=== PATIENT | female | born 2005 | race Caucasian/White ===

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

== ENCOUNTER 2024-05-23 09:04 | Emergency (ER) | payer OTHER, SELFPAY ==
[2024-05-23 09:16] VITALS: BP 133/80; PULSE 66; RESP 16; TEMP 36.6; O2SAT 100
[2024-05-23 10:00] VITALS: BP 146/78; PULSE 66; RESP 16; TEMP 36.7; O2SAT 99
--- NOTE | 2024-05-23 10:05 | ED.GENADULT ---
HPI - General Adult General Chief complaint: Nausea/Vomiting/Diarrhea Stated complaint: n/v Time Seen by Provider: 05/23/24 10:04 Source: patient Mode of arrival: ambulatory Limitations: no limitations History of Present Illness HPI narrative: 18 years old white female came to the ED complaining of nausea and vomiting for the last 48 hours. She denies any fever or chills or diarrhea or abdominal pain. Patient report some box ago known around where she laid, patient uses marijuana on a daily. She healthy otherwise. Related Data Home Medications ?Medication ?Instructions ?Recorded ?Confirmed ?Last Taken ?Type sertraline 50 mg tablet (Zoloft) 75 mg PO DAILY 02/21/22 02/21/22 Unknown History Allergies Allergy/AdvReac Type Severity Reaction Status Date / Time No Known Allergies Allergy Verified 05/23/24 09:16 Review of Systems Review of Systems: All systems reviewed & are unremarkable except as noted in HPI and below PMFSH Past Medical History Medical History Anxiety Social History Social History Smoking status: Never smoker Alcohol intake: never Substance use: never Exam Narrative: General appearance: Well-developed, well-nourished Skin: Normal color Head: Normocephalic, nontraumatic Eyes: Clear conjunctiva ENT: Oropharynx normal, ears normal, nose normal Neck: Supple, nontender Chest and respiratory: Airway patent, no respiratory distress, no accessory muscle use Heart: Regular rate/rhythm Abdomen: Soft, nontender, no organomegaly, quiet bowel sounds Vascular: Normal peripheral pulses, normal capillary refill. Musculoskeletal: Normal range of motion, nontender back Neurologic: Alert and oriented ?3, FACULTY DEAN is normal as tested, no gross motor deficit Course Vital Signs Vital signs: Vital Signs Temperature 36.6 C 05/23/24 09:16 Pulse Rate 66 05/23/24 09:16 Respiratory Rate 16 05/23/24 09:16 Blood Pressure 133/80 05/23/24 09:16 Pulse Oximetry 100 05/23/24 09:16 Oxygen Delivery Room Air 05/23/24 09:16 Temperature 36.7 C 05/23/24 10:00 Pulse Rate 78 05/23/24 11:00 Respiratory Rate 16 05/23/24 11:00 Blood Pressure 133/88 05/23/24 11:00 Pulse Oximetry 100 05/23/24 11:00 Oxygen Delivery Room Air 05/23/24 09:16 Medical Decision Making [facility] Narrative Medical decision making narrative: Patient presents with nausea and vomiting Vital signs are stable Physical examination is unremarkable Differential diagnosis include viral infection, marijuana induced vomiting, dehydration, electrolyte imbalance, urinary tract infection, anxiety like symptoms Blood workup includes CBC, CMP, lipase showed WBC of 11.8, lying gap 23, carbon dioxide 16, chloride 97 Urinalysis showed 4+ ketones Patient tested negative for COVID, flu and RSV CT abdomen and pelvis with IV contrast showed possible gallbladder issues, Ultrasound of the gallbladder showed no acute abnormalities Diagnosis of vomiting, marijuana use Discharged on Zofran. Differential Diagnosis Differential Diagnosis: As above Vital Signs Vital Signs: Vital Signs Temperature 36.6 C 05/23/24 09:16 Pulse Rate 66 05/23/24 09:16 Respiratory Rate 16 05/23/24 09:16 Blood Pressure 133/80 05/23/24 09:16 Pulse Oximetry 100 05/23/24 09:16 Oxygen Delivery Room Air 05/23/24 09:16 Temperature 36.7 C 05/23/24 10:00 Pulse Rate 78 05/23/24 11:00 Respiratory Rate 16 05/23/24 11:00 Blood Pressure 133/88 05/23/24 11:00 Pulse Oximetry 100 05/23/24 11:00 Oxygen Delivery Room Air 05/23/24 09:16 Lab Data 05/23/24 10:17 05/23/24 10:17 Labs: Lab Results 05/23/24 05/23/24 05/23/24 Range/Units 09:45 10:17 10:31 WBC 11.8 H (4.5-10.0) K/mm3 RBC 4.73 (4.2-5.4) M/mm3 Hgb 14.8 (12.0-15.0) g/dL Hct 42.2 (37.0-47.0) % MCV 89.2 (80-100) fl MCH 31.3 (26-34) pg MCHC 35.1 (32-36) g/dl RDW 13.2 (11.5-14.5) % Plt Count 279 (150-375) k/mm3 MPV 11.0 H (7.4-10.4) fl Immature Gran % (Auto) 0.7 H (0-0.5) % Neut % (Auto) 84.3 H (45.5-73.1) % Lymph % (Auto) 8.9 L (18.3-44.2) % Delta % (Auto) 5.8 (2.6-8.5) % Eos % (Auto) 0.0 (0-4.4) % Baso % (Auto) 0.3 (0.2-1.2) % Lymph # (Auto) 1.05 (0.9-3.2) K/mm3 Delta # (Auto) 0.7 H (0.1-0.6) K/mm3 Eos # (Auto) 0.0 (0-0.3) K/mm3 Baso # (Auto) 0.0 (0.0-0.1) K/mm3 Abs Immat Gran (auto) 0.08 H (0.00-0.031) K/mm3 Absolute Neuts (auto) 9.9 H (1.3-6.7) K/mm3 Absolute Nucleated RBC 0.000 (0.0-0.012) K/mm3 Nucleated RBC % 0.0 (0.0-0.2) % Sodium 136 L (137-145) mmol/L Potassium 3.6 (3.4-5.0) mmol/L Chloride 97 L (98-107) mmol/L Carbon Dioxide 16 L (22-30) mmol/L Anion Gap 23 H (4-12) mmol/L BUN 14 (7-17) mg/dL Creatinine 0.84 (0.7-1.0) mg/dL Estim Creat Clear Calc 70 ml/min Estimated GFR > 60 (59 - ) Glucose 106 (65-110) mg/dL Calcium 10.2 (8.4-10.2) mg/dL Total Bilirubin 0.9 (0.2-1.3) mg/dL AST 39 H (14-36) U/L ALT 41 H (6-35) U/L Alkaline Phosphatase 61 (38-126) U/L Total Protein 9.0 H (6.3-8.2) g/dL Albumin 5.2 H (3.5-5.1) g/dL Lipase 42 (23-300) U/L Urine Color Yellow (Yellow) Urine Appearance Clear (Clear) Urine pH 5.5 (5.0-9.0) Ur Specific Reading 1.026 (1.001-1.035) Urine Protein 1+ H (Negative) mg/dL Urine Glucose (UA) Negative (Negative) mg/dL Urine Ketones 4+ H (Negative) mg/dL Ur Blood (Man) 1+ H (Negative) Urine Nitrate Negative (Negative) Urine Bilirubin Negative (Negative) Urine Urobilinogen 0.2 (<2.0) mg/dL Leukocyte Esterase Rfl Negative (Negative) BRYAN/UL Urine RBC 0-2 (0-2) /hpf Urine WBC 0-5 (0-3) /hpf Ur Squamous Epith Cells None seen (Few) /hpf Urine Bacteria None seen /hpf Urine Casts 0-2 POC Urine HCG, Qual Negative (Negative) Influenza A (RT-PCR) Negative (Negative) Influenza B (RT-PCR) Negative (Negative) RSV (RT-PCR) Negative (Negative) SARS-CoV-2 RNA (RT-PCR) Negative (Negative) Imaging Data Radiologist's impression: Impressions Abdomen/Pelvis CT 05/23/24 12:17 Impression: Periportal edema and mild gallbladder wall thickening, nonspecific findings. Consider gallbladder ultrasound for further evaluation as indicated. Small right ovarian cyst and probable trace free fluid in the pelvis. Upper Quadrant Ultrasound 05/23/24 13:17 Impression: No significant abnormality seen. Discharge Plan Discharge Clinical Impression: Vomiting Patient Disposition: Home, Self-Care Condition: Stable Instructions: Acute Nausea and Vomiting (DC) Additional Instructions: Return if symptoms are worsening , call your family physician for appointment, take Tylenol as as needed for aches and pain, continue home medications. Stop using marijuana Patient Language: Welsh Prescriptions: New ondansetron 4 mg tablet,disintegrating 4 mg PO Q4H 0 Days Qty: 10 0RF Rx Instructions: 1st dose 1-2 hr before radiation No Action sertraline [Zoloft] 50 mg Tablet 75 mg PO DAILY Follow-up/Referrals: [facility] [place], [place], [Primary Care Provider] - Stand Alone Forms: Work/School Release IP
[2024-05-23 10:30] VITALS: BP 140/90; PULSE 87; RESP 16; O2SAT 100
[2024-05-23 10:36] LABS: Basophils Percent Auto 0.3 % (0.2-1.2); Hematocrit 42.2 % (37.0-47.0); Hemoglobin 14.8 g/dL (12.0-15.0); Immature Granulocyte Absolute 0.08 K/mm3 (0.00-0.031); Immature Granulocyte Percent A 0.7 % (0-0.5); Lymphocytes Absolute Auto 1.05 K/mm3 (0.9-3.2); Lymphocytes Percent Auto 8.9 % (18.3-44.2); Mean Corpuscular HGB Conc 35.1 g/dl (32-36); Mean Corpuscular Hemoglobin 31.3 pg (26-34); Mean Corpuscular Volume 89.2 fl (80-100); Monocytes Absolute Auto 0.7 K/mm3 (0.1-0.6); Monocytes Percent Auto 5.8 % (2.6-8.5); Neutrophils Absolute Auto 9.9 K/mm3 (1.3-6.7); Neutrophils Percent Auto 84.3 % (45.5-73.1); Platelet Count Result 279 k/mm3 (150-375); Red Blood Count 4.73 M/mm3 (4.2-5.4); Red Cell Distribution Width 13.2 % (11.5-14.5); White Blood Count 11.8 K/mm3 (4.5-10.0)
[2024-05-23 10:44] LABS: Add Urine Microscopic? YES; Appearance Urine Clear (Clear); Bacteria Urine None Seen /hpf; Bilirubin Urine Negative (Negative); Blood Urine 1+ (Negative); Color Urine Yellow (Yellow); Glucose Urine UA Negative (Negative); Ketones Urine 4+ mg/dL (Negative); Leukocyte Esterase Ur Negative LEU/UL (Negative); Nitrate Urine Negative (Negative); Non Pathogenic Casts 0-2; Protein Urine 1+ mg/dL (Negative); RBC Urine 0-2 /hpf (0-2); Specific Grav Ur 1.026 (1.001-1.035); Squamous Epithelial Cell Urine None Seen /hpf (Few); Urobilinogen Urine 0.2 mg/dL (<2.0); WBC Urine 0-5 /hpf (0-3); pH Urine 5.5 (5.0-9.0)
[2024-05-23] MEDS: SODIUM CHLORIDE 0.9% IV 2,000 ML 999 ML IV CONT (10:44)
[2024-05-23] MEDS: ONDANSETRON INJ 4 MG/2 ML VIAL 8 MG IV PUSH (10:45)
[2024-05-23 10:47] LABS: Alanine Aminotransferase 41 U/L (6-35); Albumin Level 5.2 g/dL (3.5-5.1); Alkaline Phosphatase 61 U/L (38-126); Anion Gap 23 mmol/L (4-12); Aspartate Amino Transferase 39 U/L (14-36); Bilirubin,Total 0.9 mg/dL (0.2-1.3); Blood Urea Nitrogen 14 mg/dL (7-17); Calcium 10.2 mg/dL (8.4-10.2); Carbon Dioxide 16 mmol/L (22-30); Chloride 97 mmol/L (98-107); Estimated CRCL calculation 70 ml/min; Estimated Glomerular Filt Rate > 60; Glucose 106 mg/dL (65-110); Lipase 42 U/L (23-300); Potassium 3.6 mmol/L (3.4-5.0); Sodium 136 mmol/L (137-145)
[2024-05-23 11:00] VITALS: BP 133/88; PULSE 78; RESP 16; O2SAT 100
[2024-05-23 11:12] LABS: Influenza A QL RT-PCR Negative (Negative); Influenza B QL RT-PCR Negative (Negative); RSV RNA, RT-PCR Negative (Negative); SARS-CoV-2 RNA PCR Negative (Negative)
[2024-05-23 11:43] LABS: BEDSIDEPREGUCG Negative (Negative)
--- NOTE | 2024-05-23 11:46 | PC.NURSE ---
Pt resting, pt has not experienced any vomiting during ER visit, nausea improved
[2024-05-23 14:08] VITALS: BP 111/52; PULSE 71; RESP 16; O2SAT 100
== END 2024-05-23 14:10 | disposition home or self-care (01) ==
PROVIDERS: Emergency Provider Emergency Medicine
DX: R11.2 Nausea with vomiting, unspecified (principal); Z20.822 Contact with and (suspected) exposure to COVID-19; F41.9 Anxiety disorder, unspecified; Z79.899 Other long term (current) drug therapy; N83.201 Unspecified ovarian cyst, right side
CPT/HCPCS: 36415; 74177; 76705; 80053; 81001; 81025; 83690; 85025; 87637; 96361; 96374; 99284; J2405; J7030; Q9967

== ENCOUNTER 2024-05-26 04:44 | Emergency (ER) | payer OTHER, SELFPAY ==
--- OUTSIDE RECORDS SUMMARY | 2024-05-26 04:46 | XMS_ITS | Clinical Summary ---
Author Organization [facility] Address [address] [place] [address] Care Team Providers Care Eyeglass Inspector Name Role Phone Chris Swartz MD Primary Care Provider [phone] Allergies No known active allergies Medications sertraline 50 MG tablet Take 50 mg by mouth daily. 1 Active amoxicillin 875 MG tablet Take 875 mg by mouth 2 (two) times daily. For 10 days beginning on 12/20/20 1 Active predniSONE 10 mg tablet Take 10 mg by mouth daily. Active ondansetron (ZOFRAN-ODT) 4 MG disintegrating tablet Take 1 tablet (4 mg total) by mouth every 8 (eight) hours as needed for Nausea. 20 tablet 5 Active Active Problems Problem Noted Date Diagnosed Date Hand sprain, right, initial encounter 05/06/2018 Encounters Date Type Department Care Team Description 05/24/2024 7:18 AM [facility] [employer] - 05/24/2024 11:06 AM [facility] Emergency [facility] [place] [address] Armida Marie MD Vomiting; Anxiety Discharge Disposition: Home or Self Care (Routine Discharge) 05/24/2024 Travel from Last 3 Months Social History Tobacco Use Types Packs/Day Years Used Date Smoking Tobacco: Never Smokeless Tobacco: Never Alcohol Use Standard Drinks/Week Comments Not Currently 0 (1 standard drink = 0.6 oz pur e alcohol) Comments No Sex and Gender Information Value Date Recorded Sex Assigned at Female 05/24/2024 7:19 AM [employer]TE [employer] Legal Sex Female 9:31 AM [employer]TE TE[employer] Gender Identity Not on file Sexual Orientation Not on file Last Filed Vital Signs Vital Sign Reading Time Taken Comments Blood Pressure 144/92 05/24/2024 7:08 AM [employer]ARETTE TE[employer] Pulse 54 05/24/2024 7:08 AM [employer]TE [employer] Temperature 37 C (98.6 F) 05/24/2024 7:08 AM [employer]ARETTE TESTER Respiratory Rate 17 05/24/2024 7:08 AM C[employer]ARETTE TESTER Oxygen Saturation 98% 05/24/2024 7:08 AM CIGARETTE TESTER Inhaled Oxygen Concentration - - Weight 53.3 kg (117 lb 8.1 oz) 05/24/2024 7:08 A M [employer] Height 156 cm (5' 1.42 ) 05/24/2024 7:08 AM C[employer]ARETTE TE[employer] Body Mass Index 21.9 05/24/2024 7:08 AM CIGARETTE TE[employer] Plan of Treatment Health Maintenance Due Date Last Done Comments Annual Physical 10/07/2006 HPV Vaccines (1 - 3-dose series) 10/07/2018 Meningococcal B Vaccine (1 o f 2 - Standard) 2019 Hepatitis C 10/07/2021 DTaP, Tdap and Td Vaccines ( 1 - Tdap) 10/07/2022 Hepatitis B Vaccines (1 of 3 - 19+ 3-dose series) 10/07/2022 COVID-19 Vaccine (3 - 2023-2 5 season) 2023 09/08/2020, 08/18/2020 Influenza Adult (#1) 2023 Meningococcal Vaccine Aged Out No sal conor eligible based on patient's age to complete this topic Pneumococcal Vaccine: Pediatrics (0 to 5 Years) and At-Risk Patients (6 to 64 Years) Aged Out No longer eligible b ased on patient's age to complete this topic RSV Immunizations Under 20 Months Aged Out No longer eligible b ased on patient's age to complete this topic Procedures Procedure Name Priority Date/Time Associated Diagnosis Comments TEST URINE STAT 05/24/2024 9:07 AM [employer]TE [employer] HC URINALYSIS AUTO W/O MICRO STAT 05/24/2024 9:07 AM [employer]TE [employer] LIPASE STAT 05/24/2024 7:45 AM [employer]TE TE[employer] COMPREHENSIVE METABOLIC PANEL STAT 05/24/2024 7:45 AM [employer]AR[employer]TE TE[employer] CBC W/DIFF AUTOMATED STAT 05/24/2024 7:45 AM CIGARETTE TESTER from Last 3 Months Results * (ABNORMAL) URINALYSIS (05/24/2024 9:07 AM CIGARETTE TESTER) SPECIMEN TYPE URINE CLEAN CATCH 05/24/2024 9:32 AM CIGARETTE TESTER [facility] COLOR (U) LIGHT YELLOW 05/24/2024 9:48 AM C[employer]ARETTE TESTER [facility] TRANSPARENCY CLEAR 05/24/2024 9:48 AM [facility] SPECIFIC GRAVITY (U) 1.028 1.001 - 1.030 05/24/2024 9:48 AM [facility] U PH 5.5 5.0 - 9.0 05/24/2024 9:48 AM [facility] LEUKOCYTES (U) NEGATIVE NEGATIVE 05/24/2024 9:48 AM [employer]TE [employer] [facility] NITRITES NEGATIVE NEGATIVE 05/24/2024 9:48 AM [facility] PROTEIN RANDOM (U) 20 <30 MG/DL 05/24/2024 9:48 AM [facility] GLUCOSE (U) NORMAL NORMAL MG/DL 05/24/2024 9:48 AM [facility] KETONES MG/DL (U) 150(A) NEGATIVE MG/DL 05/24/2024 9:48 AM [facility] UROBILINOGEN NORMAL NORMAL MG/DL 05/24/2024 9:48 AM [facility] BILIRUBIN (U) NEGATIVE NEGATIVE MG/DL 05/24/2024 9:48 AM [facility] BLOOD (U) TRACE(A) NEGATIVE 05/24/2024 9:48 AM [employer]TE [employer] [facility] MUCUS FEW /LPF 05/24/2024 9:48 AM [employer] [facility] WBC/HPF 2 <6 /HPF 05/24/2024 9:48 AM [employer] [facility] RBC/HPF 3 <6 /HPF 05/24/2024 9:48 AM [employer]TE [employer] [facility] SQUAMOUS EPITHELIALS RARE /HPF 05/24/2024 9:48 AM [employer]TE TESTER [facility] URINE SPECIMEN OBTAINED BY CLEAN CATCH PROCEDURE / Unknown 05/24/2024 9:07 AM CIGARETTE TESTER Armida Marie MD URINE ORDERABLES Final Result Performing Organization Address [facility]/ZIP Co de Phone Number [facility] [address] [place] [address], [place] [phone] * TEST URINE (05/24/2024 9:07 AM CIGARETTE TESTER) URINE HCG TEST NEGATIVE 05/24/2024 9:58 AM CIGARETTE TESTER [facility] Comment: VERY DILUTE URINE SPECIMENS MAY NOT CONTAIN SITE SURVEYOR LEVELS OF HCG. IF IS STILL SUSPECTED, A SERUM HCG TEST IS RECOMMENDED. URINE SPECIMEN FROM URETHRA / Unknown 05/24/2024 9:07 AM CIGARETTE TESTER Armida Marie MD URINE ORDERABLES Final Result [facility] [address] [place] [address], [place] [phone] * (ABNORMAL) COMPREHENSIVE METABOLIC PANEL (05/24/2024 7:45 AM CIGARETTE TESTER) GLUCOSE 97 70 - 99 MG/DL 05/24/2024 8:33 AM CIGARETTE TESTER [facility] BUN 11 7 - 18 MG/DL 05/24/2024 8:33 AM [facility] CREATININE S/P/B 0.65 0.55 - 1.02 MG/DL 05/24/2024 8:33 AM [facility] SODIUM S/P/B 136 136 - 145 MMOL/L 05/24/2024 8:33 AM [facility] POTASSIUM S/P/B 3.3(L) 3.5 - 5.1 MMOL/L 05/24/2024 8:33 AM [facility] CHLORIDE S/P/B 104 97 - 115 MMOL/L 05/24/2024 8:33 AM [facility] CO2 19.0(L) 21 - 32 MMOL/L 05/24/2024 8:33 AM [facility] CALCIUM S/P/B 9.5 8.5 - 10.1 MG/DL 05/24/2024 8:33 AM [facility] BILIRUBIN TOTAL S/P/B 1.2 0.2 - 1.2 MG/DL 05/24/2024 8:33 AM [facility] Comment: THIS ASSAY IS NOT RECOMMENDED FOR PATIENTS UNDERGOING TREATMENT WITH ELTROMBOPAG DUE TO THE POTENTIAL FOR FALSELY ELEVATED RESULTS. TOTAL PROTEIN S/P/B 7.3 6.4 - 8.2 G/DL 05/24/2024 8:33 AM [facility] ALBUMIN S/P/B 4.2 3.4 - 5.0 G/DL 05/24/2024 8:33 AM [facility] AST 26 15 - 37 U/L 05/24/2024 8:33 AM [facility] ALT 37 14 - 55 U/L 05/24/2024 8:33 AM [facility] ALKALINE PHOSPHATASE S/P/B 47(L) 50 - 136 U/L 05/24/2024 8:33 AM CIGARETTE TESTER [facility] ANION GAP 13.0(H) 2 - 10 MMOL/L 05/24/2024 8:33 AM [facility] BUN CREATININE RATIO 17.0 6 - 26 05/24/2024 8:33 AM [facility] A/G RATIO 1.4 1.0 - 2.0 RATIO 05/24/2024 8:33 AM [facility] GFR ESTIMATE >90 >90 ML/MIN/1.7 3 M2 05/24/2024 8:33 AM [facility] Comment: NOTE: eGFR is not calculated for patients <18 years of age or gender unknown. This is an estimated GFR calculation using the new CKD EPI creatinine equation without race and so does not require a correction factor for race. This estimated GFR should not be used for calculating drug doses. 05/24/2024 7:45 AM CIGARETTE TESTER Armida Marie MD LABORATORY Final Result [facility] [address] [place] [address], * (ABNORMAL) CBC W/DIFF AUTOMATED (05/24/2024 7:45 AM CIGARETTE TESTER) WBC 7.50 4.5 - 13.0 x10'3/uL 05/24/2024 8:11 AM [facility] RBC 4.41 4.20 - 5.40 x10'6/uL 05/24/2024 8:11 AM [facility] HGB 13.5 12.0 - 16.0 G/DL 05/24/2024 8:11 AM [facility] HCT 39.7 38.0 - 48.0 % 05/24/2024 8:11 AM [facility] MCV 90.0 81.0 - 99.0 FL 05/24/2024 8:11 AM [facility] MCH 30.6 27.0 - 31.0 PG 05/24/2024 8:11 AM [facility] MCHC 34.0 32.0 - 36.0 G/DL 05/24/2024 8:11 AM [facility] RDW 13.2 11.5 - 14.5 % 05/24/2024 8:11 AM [facility] PLT 253 130 - 400 x10'3/uL 05/24/2024 8:11 AM [facility] MPV 10.9 9.3 - 12.2 FL 05/24/2024 8:11 AM [facility] DIFFERENTIAL TYPE AUTOMATED DIFFERENTIAL 05/24/2024 8:11 AM [facility] NEUTROPHILS % 67.5 % 05/24/2024 8:11 AM [facility] LYMPHOCYTES % 24.5 % 05/24/2024 8:11 AM [facility] MONOCYTES % 7.3 % 05/24/2024 8:11 AM [facility] EOSINOPHILS 0.0 % 05/24/2024 8:11 AM [facility] BASOPHILS 0.4 % 05/24/2024 8:11 AM [facility] IMMATURE GRANS % 0.3 % 05/25/19 8:11 AM [facility] ABS. NEUTROPHILS 5.06 1.80 - 8.00 x10'3/uL 05/24/2024 8:11 AM [facility] ABS. LYMPHOCYTES 1.84 1.20 - 5.20 x10'3/uL 05/24/2024 8:11 AM [facility] ABS. MONOCYTES 0.55 0.24 - 0.86 x10'3/uL 05/24/2024 8:11 AM [employer]ARETTE TE[employer] [facility] ABS. EOSINOPHILS 0.00(L) 0.04 - 0.36 x10'3/uL 05/24/2024 8:11 AM CIGARETTE TESTER [facility] ABS. BASOPHILS 0.03 0.01 - 0.08 x10'3/uL 05/24/2024 8:11 AM [employer]ARETTE TE[employer] [facility] ABS. IMMATURE GRANULOCYTES 0.02 0.00 - 0.49 x10'3/uL 05/24/2024 8:11 AM CIGARETTE TESTER [facility] 05/24/2024 7:45 AM [facility]TE [facility] MD LABORATORY Final Result [facility] [address] [place] [id number], [place] [phone] * LIPASE (05/24/2024 7:45 AM CIGARETTE TESTER) LIPASE 22 13 - 75 UNITS/L 05/24/2024 8:33 AM CIGARETTE TESTER [facility] 05/24/2024 7:45 AM CIGARETTE TESTER Armida Marie MD LABORATORY Final Result Performing Organization Address [facility]/ZIP Co de Phone Number [facility] [address] [place] [address], [place] [phone] from Last 3 Months Insurance [facility] Care Teams Eyeglass Inspector Relationship Specialty Start Date End Date Chris Swartz MD [address] [place], [place] [address] PCP - General PEDIATRICS 11/29/20
--- OUTSIDE RECORDS SUMMARY | 2024-05-26 05:19 | XMS_ITS | Clinical Summary ---
Author Organization [facility] Address [address] [place] [address] Care Team Providers Care Poultry Scientist Name Role Phone Chris Swartz MD Primary Care Provider [phone] Allergies No known active allergies Medications sertraline [...] Department Care Team Description 05/24/2024 7:18 AM FINANCIAL DEVELOPER - 05/24/2024 11:06 AM [facility] Emergency [facility] [place] [address] Armida Marie MD Vomiting; Anxiety Discharge Disposition: [...] Sex Assigned at Female 05/24/2024 7:19 AM FINANCIAL DEVELOPER Legal Sex Female 9:31 AM FINANCIAL DEVELOPER Gender Identity Not on file Sexual Orientation Not on file Last Filed Vital Signs Vital Sign Reading Time Taken Comments Blood Pressure 144/92 05/24/2024 7:08 AM FINANCIAL DEVELOPER Pulse 54 05/24/2024 7:08 AM FINANCIAL DEVELOPER Temperature 37 C (98.6 F) 05/24/2024 7:08 AM FINANCIAL DEVELOPER Respiratory Rate 17 05/24/2024 7:08 AM FINANCIAL DEVELOPER Oxygen Saturation 98% 05/24/2024 7:08 AM FINANCIAL DEVELOPER Inhaled Oxygen Concentration - - Weight 53.3 kg (117 lb 8.1 oz) 05/24/2024 7:08 A M FINANCIAL DEVELOPER Height 156 cm (5' 1.42 ) 05/24/2024 7:08 AM FINANCIAL DEVELOPER Body Mass Index 21.9 05/24/2024 7:08 AM FINANCIAL DEVELOPER Plan of Treatment Health Maintenance Due Date [...] Comments TEST URINE STAT 05/24/2024 9:07 AM FINANCIAL DEVELOPER HC URINALYSIS AUTO W/O MICRO STAT 05/24/2024 9:07 AM FINANCIAL DEVELOPER LIPASE STAT 05/24/2024 7:45 AM FINANCIAL DEVELOPER COMPREHENSIVE METABOLIC PANEL STAT 05/24/2024 7:45 AM FINANCIAL DEVELOPER CBC W/DIFF AUTOMATED STAT 05/24/2024 7:45 AM FINANCIAL DEVELOPER from Last 3 Months Results * (ABNORMAL) URINALYSIS (05/24/2024 9:07 AM FINANCIAL DEVELOPER) SPECIMEN TYPE URINE CLEAN CATCH 05/24/2024 9:32 AM FINANCIAL DEVELOPER [facility] COLOR (U) LIGHT YELLOW 05/24/2024 9:48 AM FINANCIAL DEVELOPER [facility] TRANSPARENCY CLEAR 05/24/2024 9:48 AM [facility] SPECIFIC GRAVITY (U) 1.028 1.001 - 1.030 05/24/2024 9:48 AM [facility] U PH 5.5 5.0 - 9.0 05/24/2024 9:48 AM [facility] LEUKOCYTES (U) NEGATIVE NEGATIVE 05/24/2024 9:48 AM FINANCIAL DEVELOPER [facility] NITRITES NEGATIVE NEGATIVE 05/24/2024 9:48 AM [facility] PROTEIN RANDOM (U) 20 <30 MG/DL 05/24/2024 9:48 AM [facility] GLUCOSE (U) NORMAL NORMAL MG/DL 05/24/2024 9:48 AM [facility] KETONES MG/DL (U) 150(A) NEGATIVE MG/DL 05/24/2024 9:48 AM [facility] UROBILINOGEN NORMAL NORMAL MG/DL 05/24/2024 9:48 AM [facility] BILIRUBIN (U) NEGATIVE NEGATIVE MG/DL 05/24/2024 9:48 AM [facility] BLOOD (U) TRACE(A) NEGATIVE 05/24/2024 9:48 AM FINANCIAL DEVELOPER [facility] MUCUS FEW /LPF 05/24/2024 9:48 AM FINANCIAL DEVELOPER [facility] WBC/HPF 2 <6 /HPF 05/24/2024 9:48 AM FINANCIAL DEVELOPER [facility] RBC/HPF 3 <6 /HPF 05/24/2024 9:48 AM FINANCIAL DEVELOPER [facility] SQUAMOUS EPITHELIALS RARE /HPF 05/24/2024 9:48 AM FINANCIAL DEVELOPER [facility] URINE SPECIMEN OBTAINED BY CLEAN CATCH PROCEDURE / Unknown 05/24/2024 9:07 AM FINANCIAL DEVELOPER Armida Marie MD URINE ORDERABLES Final Result Performing Organization Address City/[facility]/ZIP Co de Phone Number [facility] [address] [place] [address], [place] [phone] * TEST URINE (05/24/2024 9:07 AM FINANCIAL DEVELOPER) URINE HCG TEST NEGATIVE 05/24/2024 9:58 AM FINANCIAL DEVELOPER [facility] Comment: VERY DILUTE URINE SPECIMENS MAY NOT CONTAIN VENETIAN BLIND MAKER LEVELS OF HCG. IF IS STILL SUSPECTED, A SERUM HCG TEST IS RECOMMENDED. URINE SPECIMEN FROM [facility] / Unknown 05/24/2024 9:07 AM FINANCIAL DEVELOPER Armida Marie MD URINE ORDERABLES Final Result [facility] [address] [place] [address], [place] [phone] * (ABNORMAL) COMPREHENSIVE METABOLIC PANEL (05/24/2024 7:45 AM FINANCIAL DEVELOPER) GLUCOSE 97 70 - 99 MG/DL 05/24/2024 8:33 AM FINANCIAL DEVELOPER [facility] BUN 11 7 - 18 MG/DL 05/24/2024 8:33 AM [facility] CREATININE S/P/B 0.65 0.55 - 1.02 MG/DL 05/24/2024 8:33 AM [facility] SODIUM S/P/B 136 136 - 145 MMOL/L 05/24/2024 8:33 AM [facility] POTASSIUM S/P/B 3.3(L) 3.5 - 5.1 MMOL/L 05/24/2024 8:33 AM [facility] CHLORIDE S/P/B 104 97 - 115 MMOL/L 05/24/2024 8:33 AM [facility] CO2 19.0(L) 21 - 32 MMOL/L 05/24/2024 8:33 AM [facility] CALCIUM S/P/B 9.5 8.5 - 10.1 MG/DL 05/24/2024 8:33 AM [facility] BILIRUBIN TOTAL S/P/B 1.2 0.2 - 1.2 MG/DL 05/24/2024 8:33 AM [facility] Comment: THIS ASSAY IS NOT RECOMMENDED FOR PATIENTS UNDERGOING TREATMENT WITH ELTROMBOPAG DUE TO THE POTENTIAL FOR FALSELY ELEVATED RESULTS. TOTAL PROTEIN S/P/B 7.3 6.4 - 8.2 G/DL 05/24/2024 8:33 AM [facility] ALBUMIN S/P/B 4.2 3.4 - 5.0 G/DL 05/24/2024 8:33 AM [facility] AST 26 15 - 37 U/L 05/24/2024 8:33 AM [facility] ALT 37 14 - 55 U/L 05/24/2024 8:33 AM [facility] ALKALINE PHOSPHATASE S/P/B 47(L) 50 - 136 U/L 05/24/2024 8:33 AM FINANCIAL DEVELOPER [facility] ANION GAP 13.0(H) 2 - 10 MMOL/L 05/24/2024 8:33 AM [facility] BUN CREATININE RATIO 17.0 6 - 26 05/24/2024 8:33 AM [facility] A/G RATIO 1.4 1.0 - 2.0 RATIO 05/24/2024 8:33 AM [facility] GFR ESTIMATE >90 >90 ML/MIN/1.7 3 M2 05/24/2024 8:33 AM [facility] Comment: NOTE: eGFR is not calculated for patients <18 years of age or gender unknown. This is an estimated GFR calculation using the new CKD EPI creatinine equation without race and so does not require a correction factor for race. This estimated GFR should not be used for calculating drug doses. 05/24/2024 7:45 AM FINANCIAL DEVELOPER Armida Marie MD LABORATORY Final Result [facility] [address] [place] [address], * (ABNORMAL) CBC W/DIFF AUTOMATED (05/24/2024 7:45 AM FINANCIAL DEVELOPER) WBC 7.50 4.5 - 13.0 x10'3/uL 05/24/2024 8:11 AM [facility] RBC 4.41 4.20 - 5.40 x10'6/uL 05/24/2024 8:11 AM [facility] HGB 13.5 12.0 - 16.0 G/DL 05/24/2024 8:11 AM [facility] HCT 39.7 38.0 - 48.0 % 05/24/2024 8:11 AM [facility] MCV 90.0 81.0 - 99.0 FL 05/24/2024 8:11 AM [facility] MCH 30.6 27.0 - 31.0 PG 05/24/2024 8:11 AM [facility] MCHC 34.0 32.0 - 36.0 G/DL 05/24/2024 8:11 AM [facility] RDW 13.2 11.5 - 14.5 % 05/24/2024 8:11 AM [facility] PLT 253 130 - 400 x10'3/uL 05/24/2024 8:11 AM [facility] MPV 10.9 9.3 - 12.2 FL 05/24/2024 8:11 AM [facility] DIFFERENTIAL TYPE AUTOMATED DIFFERENTIAL 05/24/2024 8:11 AM [facility] NEUTROPHILS % 67.5 % 05/24/2024 8:11 AM [facility] LYMPHOCYTES % 24.5 % 05/24/2024 8:11 AM [facility] MONOCYTES % 7.3 % 05/24/2024 8:11 AM [facility] EOSINOPHILS 0.0 % 05/24/2024 8:11 AM [facility] BASOPHILS 0.4 % 05/24/2024 8:11 AM [facility] IMMATURE GRANS % 0.3 % 05/25/19 8:11 AM [facility] ABS. NEUTROPHILS 5.06 1.80 - 8.00 x10'3/uL 05/24/2024 8:11 AM [facility] ABS. LYMPHOCYTES 1.84 1.20 - 5.20 x10'3/uL 05/24/2024 8:11 AM [facility] ABS. MONOCYTES 0.55 0.24 - 0.86 x10'3/uL 05/24/2024 8:11 AM FINANCIAL DEVELOPER [facility] ABS. EOSINOPHILS 0.00(L) 0.04 - 0.36 x10'3/uL 05/24/2024 8:11 AM FINANCIAL DEVELOPER [facility] ABS. BASOPHILS 0.03 0.01 - 0.08 x10'3/uL 05/24/2024 8:11 AM FINANCIAL DEVELOPER [facility] ABS. IMMATURE GRANULOCYTES 0.02 0.00 - 0.49 x10'3/uL 05/24/2024 8:11 AM FINANCIAL DEVELOPER [facility] 05/24/2024 7:45 AM FINANCIAL DEVELOPER [facility] MD LABORATORY Final Result [facility] [address] [place] [address], [place] [phone] * LIPASE (05/24/2024 7:45 AM FINANCIAL DEVELOPER) LIPASE 22 13 - 75 UNITS/L 05/24/2024 8:33 AM FINANCIAL DEVELOPER [facility] 05/24/2024 7:45 AM FINANCIAL DEVELOPER Armida Marie MD LABORATORY Final Result Performing Organization Address City/[facility]/ZIP Co de Phone Number [facility] [address] [place] [address], [place] [phone] from Last 3 Months Insurance [facility] Care Teams Poultry Scientist Relationship Specialty Start Date End Date Chris Swartz MD [address] [place], [place] [address] PCP - General PEDIATRICS 11/29/20
== END 2024-05-26 05:36 | disposition left against medical advice (07) ==
LOC: ANHED 05:17
DX: Z53.21 Procedure and treatment not carried out due to patient leaving prior to being seen by health care provider (principal)
CPT/HCPCS: 99199

== ENCOUNTER 2024-06-22 13:49 | Emergency (ER) | payer OTHER, SELFPAY ==
[2024-06-22 13:57] VITALS: BP 128/83; PULSE 73; RESP 16; TEMP 36.5; O2SAT 99
--- OUTSIDE RECORDS SUMMARY | 2024-06-22 15:05 | XMS_ITS | Clinical Summary ---
Author Organization [facility] Address [address] [place] [address] Care Team Providers Care Chief Design Engineer Name Role Phone Chris Swartz MD Primary Care Provider [phone] Allergies No known active allergies Medications sertraline [...] Department Care Team Description 05/24/2024 7:18 AM ROUTE AIDE - 05/24/2024 11:06 AM [facility] Emergency [facility] [place] [address] Armida Marie MD Vomiting; Anxiety Discharge Disposition: [...] Sex Assigned at Female 05/24/2024 7:19 AM ROUTE AIDE Legal Sex Female 9:31 AM ROUTE AIDE Gender Identity Not on file Sexual Orientation Not on file Last Filed Vital Signs Vital Sign Reading Time Taken Comments Blood Pressure 144/92 05/24/2024 7:08 AM ROUTE AIDE Pulse 54 05/24/2024 7:08 AM ROUTE AIDE Temperature 37 C (98.6 F) 05/24/2024 7:08 AM ROUTE AIDE Respiratory Rate 17 05/24/2024 7:08 AM ROUTE AIDE Oxygen Saturation 98% 05/24/2024 7:08 AM ROUTE AIDE Inhaled Oxygen Concentration - - Weight 53.3 kg (117 lb 8.1 oz) 05/24/2024 7:08 A M ROUTE AIDE Height 156 cm (5' 1.42 ) 05/24/2024 7:08 AM ROUTE AIDE Body Mass Index 21.9 05/24/2024 7:08 AM ROUTE AIDE Plan of Treatment Health Maintenance Due Date [...] - 2023-2 5 season) 2023 09/08/2020, 08/18/2020 Meningococcal Vaccine Aged Out No sal conor [...] Comments TEST URINE STAT 05/24/2024 9:07 AM ROUTE AIDE HC URINALYSIS AUTO W/O MICRO STAT 05/24/2024 9:07 AM ROUTE AIDE LIPASE STAT 05/24/2024 7:45 AM ROUTE AIDE COMPREHENSIVE METABOLIC PANEL STAT 05/24/2024 7:45 AM ROUTE AIDE CBC W/DIFF AUTOMATED STAT 05/24/2024 7:45 AM ROUTE AIDE from Last 3 Months Results * (ABNORMAL) URINALYSIS (05/24/2024 9:07 AM ROUTE AIDE) SPECIMEN TYPE URINE CLEAN CATCH 05/24/2024 9:32 AM ROUTE AIDE [facility] COLOR (U) LIGHT YELLOW 05/24/2024 9:48 AM ROUTE AIDE [facility] TRANSPARENCY CLEAR 05/24/2024 9:48 AM ROUTE AIDE [facility] SPECIFIC GRAVITY (U) 1.028 1.001 - 1.030 05/24/2024 9:48 AM ROUTE AIDE [facility] U PH 5.5 5.0 - 9.0 05/24/2024 9:48 AM [facility] LEUKOCYTES (U) NEGATIVE NEGATIVE 05/24/2024 9:48 AM ROUTE AIDE [facility] NITRITES NEGATIVE NEGATIVE 05/24/2024 9:48 AM [facility] PROTEIN RANDOM (U) 20 <30 MG/DL 05/24/2024 9:48 AM [facility] GLUCOSE (U) NORMAL NORMAL MG/DL 05/24/2024 9:48 AM [facility] KETONES MG/DL (U) 150(A) NEGATIVE MG/DL 05/24/2024 9:48 AM [facility] UROBILINOGEN NORMAL NORMAL MG/DL 05/24/2024 9:48 AM [facility] BILIRUBIN (U) NEGATIVE NEGATIVE MG/DL 05/24/2024 9:48 AM [facility] BLOOD (U) TRACE(A) NEGATIVE 05/24/2024 9:48 AM [facility] MUCUS FEW /LPF 05/24/2024 9:48 AM ROUTE AIDE [facility] WBC/HPF 2 <6 /HPF 05/24/2024 9:48 AM ROUTE AIDE [facility] RBC/HPF 3 <6 /HPF 05/24/2024 9:48 AM ROUTE AIDE [facility] SQUAMOUS EPITHELIALS RARE /HPF 05/24/2024 9:48 AM ROUTE AIDE [facility] URINE SPECIMEN OBTAINED BY CLEAN CATCH PROCEDURE / Unknown 05/24/2024 9:07 AM ROUTE AIDE Armida Marie MD URINE ORDERABLES Final Result Performing Organization Address City/[facility]/ZIP Co de Phone Number [facility] [address] [place] [address], [place] [phone] * TEST URINE (05/24/2024 9:07 AM ROUTE AIDE) Pathologist [facility] URINE HCG TEST NEGATIVE 05/24/2024 9:58 AM ROUTE AIDE [facility] Comment: VERY DILUTE URINE SPECIMENS MAY NOT CONTAIN LEAD RADIATION THERAPIST LEVELS OF HCG. IF IS STILL SUSPECTED, A SERUM HCG TEST IS RECOMMENDED. URINE SPECIMEN FROM [facility] / Unknown 05/24/2024 9:07 AM ROUTE AIDE Armida Marie MD URINE ORDERABLES Final Result [facility] [address] [place] [address], [place] [phone] * (ABNORMAL) COMPREHENSIVE METABOLIC PANEL (05/24/2024 7:45 AM ROUTE AIDE) Pathologist [facility] GLUCOSE 97 70 - 99 MG/DL 05/24/2024 8:33 AM ROUTE AIDE [facility] BUN 11 7 - 18 MG/DL 05/24/2024 8:33 AM ROUTE AIDE [facility] CREATININE S/P/B 0.65 0.55 - 1.02 MG/DL 05/24/2024 8:33 AM [facility] SODIUM S/P/B 136 136 - 145 MMOL/L 05/24/2024 8:33 AM [facility] POTASSIUM S/P/B 3.3(L) 3.5 - 5.1 MMOL/L 05/24/2024 8:33 AM [facility] CHLORIDE S/P/B 104 97 - 115 MMOL/L 05/24/2024 8:33 AM [facility] CO2 19.0(L) 21 - 32 MMOL/L 05/24/2024 8:33 AM [facility] CALCIUM S/P/B 9.5 8.5 - 10.1 MG/DL 05/24/2024 8:33 AM [facility] BILIRUBIN TOTAL S/P/B 1.2 0.2 - 1.2 MG/DL 05/24/2024 8:33 AM [facility] Comment: THIS ASSAY IS NOT RECOMMENDED FOR PATIENTS UNDERGOING TREATMENT WITH ELTROMBOPAG DUE TO THE POTENTIAL FOR FALSELY ELEVATED RESULTS. TOTAL PROTEIN S/P/B 7.3 6.4 - 8.2 G/DL 05/24/2024 8:33 AM [facility] ALBUMIN S/P/B 4.2 3.4 - 5.0 G/DL 05/24/2024 8:33 AM [facility] AST 26 15 - 37 U/L 05/24/2024 8:33 AM [facility] ALT 37 14 - 55 U/L 05/24/2024 8:33 AM [facility] ALKALINE PHOSPHATASE S/P/B 47(L) 50 - 136 U/L 05/24/2024 8:33 AM [facility] ANION GAP 13.0(H) 2 - 10 MMOL/L 05/24/2024 8:33 AM [facility] BUN CREATININE RATIO 17.0 6 - 26 05/24/2024 8:33 AM [facility] A/G RATIO 1.4 1.0 - 2.0 RATIO 05/24/2024 8:33 AM [facility] GFR ESTIMATE >90 >90 ML/MIN/1.7 3 M2 05/24/2024 8:33 AM [facility] Comment: NOTE: eGFR is not calculated for patients <18 years of age or gender unknown. This is an estimated GFR calculation using the new CKD EPI creatinine equation without race and so does not require a correction factor for race. This estimated GFR should not be used for calculating drug doses. 05/24/2024 7:45 AM ROUTE AIDE Armida Marie MD LABORATORY Final Result [facility] [address] [place] [id number], * (ABNORMAL) CBC W/DIFF AUTOMATED (05/24/2024 7:45 AM ROUTE AIDE) WBC 7.50 4.5 - 13.0 x10'3/uL 05/24/2024 8:11 AM [facility] RBC 4.41 4.20 - 5.40 x10'6/uL 05/24/2024 8:11 AM [facility] HGB 13.5 12.0 - 16.0 G/DL 05/24/2024 8:11 AM [facility] HCT 39.7 38.0 - 48.0 % 05/24/2024 8:11 AM [facility] MCV 90.0 81.0 - 99.0 FL 05/24/2024 8:11 AM [facility] MCH 30.6 27.0 - 31.0 PG 05/24/2024 8:11 AM [facility] MCHC 34.0 32.0 - 36.0 G/DL 05/24/2024 8:11 AM [facility] RDW 13.2 11.5 - 14.5 % 05/24/2024 8:11 AM [facility] PLT 253 130 - 400 x10'3/uL 05/24/2024 8:11 AM [facility] MPV 10.9 9.3 - 12.2 FL 05/24/2024 8:11 AM [facility] DIFFERENTIAL TYPE AUTOMATED DIFFERENTIAL 05/24/2024 8:11 AM [facility] NEUTROPHILS % 67.5 % 05/24/2024 8:11 AM [facility] LYMPHOCYTES % 24.5 % 05/24/2024 8:11 AM [facility] MONOCYTES % 7.3 % 05/24/2024 8:11 AM [facility] EOSINOPHILS 0.0 % 05/24/2024 8:11 AM [facility] BASOPHILS 0.4 % 05/24/2024 8:11 AM [facility] IMMATURE GRANS % 0.3 % 05/25/19 8:11 AM [facility] ABS. NEUTROPHILS 5.06 1.80 - 8.00 x10'3/uL 05/24/2024 8:11 AM [facility] ABS. LYMPHOCYTES 1.84 1.20 - 5.20 x10'3/uL 05/24/2024 8:11 AM [facility] ABS. MONOCYTES 0.55 0.24 - 0.86 x10'3/uL 05/24/2024 8:11 AM ROUTE AIDE [facility] ABS. EOSINOPHILS 0.00(L) 0.04 - 0.36 x10'3/uL 05/24/2024 8:11 AM ROUTE AIDE [facility] ABS. BASOPHILS 0.03 0.01 - 0.08 x10'3/uL 05/24/2024 8:11 AM ROUTE AIDE [facility] ABS. IMMATURE GRANULOCYTES 0.02 0.00 - 0.49 x10'3/uL 05/24/2024 8:11 AM ROUTE AIDE [facility] 05/24/2024 7:45 AM ROUTE AIDE Armida Marie MD LABORATORY Final Result [facility] [address] [place] [address], [place] [phone] * LIPASE (05/24/2024 7:45 AM ROUTE AIDE) LIPASE 22 13 - 75 UNITS/L 05/24/2024 8:33 AM ROUTE AIDE [facility] 05/24/2024 7:45 AM ROUTE AIDE Armida Marie MD LABORATORY Final Result [facility] [address] [place] [address], [place] [phone] from Last 3 Months Insurance Care Teams Chief Design Engineer Relationship Specialty Start Date End Date Chris Swartz MD [address] [place] [address] PCP - General PEDIATRICS 11/29/20
--- NOTE | 2024-06-22 15:07 | ED.NAVMDI ---
HPI - Nausea/Vomiting/Diarrhea General Chief complaint: Nausea/Vomiting/Diarrhea Stated complaint: N/V Time Seen by Provider: 06/22/24 14:27 Source: patient Mode of arrival: ambulatory Limitations: no limitations History of Present Illness HPI Narrative: Patient is a 18-year-old female who presents the ED with report of nausea and vomiting. Patient reports she has had persistent nausea and vomiting since 3:00 a.m. this morning. States she has been unable to keep down any food or drink. Denies abdominal pain, diarrhea, constipation, fevers. States she has had similar symptoms in the past, most recently in early May. States symptoms have previously been attributed to stress, anxiety, cannabis use. She states she has cut back on her marijuana use, but is still smoking regularly. Related Data Home Medications ?Medication ?Instructions ?Recorded ?Confirmed ?Last Taken ?Type sertraline 50 mg tablet (Zoloft) 75 mg PO DAILY 02/21/22 02/21/22 Unknown History Allergies Allergy/AdvReac Type Severity Reaction Status Date / Time No Known Allergies Allergy Verified 05/23/24 09:16 Review of Systems Review of Systems: All systems reviewed & are unremarkable except as noted in HPI. All systems reviewed & are unremarkable except as noted in HPI and below PMFSH Past Medical History Medical History (Updated 06/22/24 @ 16:53 by Maria Victoria Mazariegos PA-C) Cannabinoid hyperemesis syndrome Anxiety Social History Social History (Updated 06/22/24 @ 15:12 by Maria Victoria Mazariegos PA-C) Smoking status: Never smoker Alcohol intake: never Substance use: current Substance use type: marijuana Exam Narrative: GENERAL: Well appearing, well-nourished, non-toxic, in no acute distress. HEAD: Normocephalic, atraumatic. ENT: MMs dry. RESPIRATORY: Airway patent, respirations nonlabored. Clear to auscultation bilaterally, no rales, rhonchi, wheezing. CARDIOVASCULAR: Regular rate and rhythm without murmurs, rubs, or gallops. ABDOMINAL: Soft, no tenderness throughout abdomen, nondistended. Normoactive BS. MUSCULOSKELETAL: Moves all extremities. No gross deformities. SKIN: Warm, dry, normal color. NEURO: A&O X3. Speech clear. PSYCHIATRIC: Slightly anxious appearing. Normal interaction. Course Vital Signs Vital signs: Vital Signs Temperature 97.7 F 06/22/24 13:57 Pulse Rate 73 06/22/24 13:57 Respiratory Rate 16 06/22/24 13:57 Blood Pressure 128/83 06/22/24 13:57 Pulse Oximetry 99 06/22/24 13:57 Temperature 97.7 F 06/22/24 13:57 Pulse Rate 73 06/22/24 13:57 Respiratory Rate 16 06/22/24 13:57 Blood Pressure 128/83 06/22/24 13:57 Pulse Oximetry 99 06/22/24 13:57 MDM - Nausea/Vomiting/Diarrhea MDM Narrative Medical decision making narrative: Patient presented to ED with nausea, vomiting, history of cannabinoid induced hyperemesis. Vital signs stable upon arrival. Patient in no acute distress. Mucous membranes do appear dry. No abdominal pain or tenderness on exam. No evidence of surgical abdomen. Cbc with blood cell count of 11.7. Likely reactive from vomiting. CMP with bicarb of 15, anion gap of 18. Fluids are ongoing. Magnesium low at 1.2. Given IV and oral replacement. Potassium within normal range. UA with 3+ ketones, no signs of infection. UDS is positive for cannabinoids. Patient feeling better with supportive therapy on re-evaluation. Able to tolerate p.o. intake. Feel she is safe for discharge home at this time. Will discharge with oral Zofran for home use, encouraged patient to completely stop marijuana use. Recommended close follow-up with PCP for further evaluation. Given return precautions. Discharged in stable condition. Medical Records Attestation: I reviewed the patient's medical records. Lab Data Attestation: I reviewed the patient's lab results. 06/22/24 14:54 06/22/24 14:54 Labs: Lab Results 06/22/24 06/22/24 06/22/24 Range/Units 14:54 14:54 16:10 WBC 11.7 H (4.5-10.0) K/mm3 RBC 4.46 (4.2-5.4) M/mm3 Hgb 13.9 (12.0-15.0) g/dL Hct 40.2 (37.0-47.0) % MCV 90.1 (80-100) fl MCH 31.2 (26-34) pg MCHC 34.6 (32-36) g/dl RDW 13.4 (11.5-14.5) % Plt Count 305 (150-375) k/mm3 MPV 10.8 H (7.4-10.4) fl Immature Gran % (Auto) 0.3 (0-0.5) % Neut % (Auto) 91.6 H (45.5-73.1) % Lymph % (Auto) 6.0 L (18.3-44.2) % [place] % (Auto) 1.8 L (2.6-8.5) % Eos % (Auto) 0.0 (0-4.4) % Baso % (Auto) 0.3 (0.2-1.2) % Lymph # (Auto) 0.70 L (0.9-3.2) K/mm3 [place] # (Auto) 0.2 (0.1-0.6) K/mm3 Eos # (Auto) 0.0 (0-0.3) K/mm3 Baso # (Auto) 0.0 (0.0-0.1) K/mm3 Abs Immat Gran (auto) 0.04 H (0.00-0.031) K/mm3 Absolute Neuts (auto) 10.7 H (1.3-6.7) K/mm3 Absolute Nucleated RBC 0.000 (0.0-0.012) K/mm3 Nucleated RBC % 0.0 (0.0-0.2) % Sodium 139 (137-145) mmol/L Potassium 3.8 (3.4-5.0) mmol/L Chloride 106 (98-107) mmol/L Carbon Dioxide 15 L (22-30) mmol/L Anion Gap 18 H (4-12) mmol/L BUN 12 (7-17) mg/dL Creatinine 0.65 L (0.7-1.0) mg/dL Estim Creat Clear Calc 89 ml/min Estimated GFR > 60 (59 - ) Glucose 172 H (65-110) mg/dL Calcium 10.2 (8.4-10.2) mg/dL Magnesium 1.2 L (1.6-2.3) mg/dL Total Bilirubin 0.9 (0.2-1.3) mg/dL AST 34 (14-36) U/L ALT 27 (6-35) U/L Alkaline Phosphatase 57 (38-126) U/L Total Protein 8.0 (6.3-8.2) g/dL Albumin 5.0 (3.5-5.1) g/dL Lipase 34 Cancelled (23-300) U/L Urine Color Yellow (Yellow) Urine Appearance Clear (Clear) Urine pH 5.5 (5.0-9.0) Ur Specific [place] 1.021 (1.001-1.035) Urine Protein Negative (Negative) mg/dL Urine Glucose (UA) 3+ H (Negative) mg/dL Urine Ketones 3+ H (Negative) mg/dL Ur Blood (Man) Negative (Negative) Urine Nitrate Negative (Negative) Urine Bilirubin Negative (Negative) Urine Urobilinogen 0.2 (<2.0) mg/dL Leukocyte Esterase Rfl Negative (Negative) BRYAN/UL Urine Opiates Screen Negative (Negative) Urine Methadone Screen Negative (Negative) Ur Barbiturates Screen Negative (Negative) Ur Phencyclidine Scrn Negative (Negative) Ur Amphetamine Screen Negative (Negative) U Benzodiazepines Scrn Negative (Negative) Urine Cocaine Screen Negative (Negative) U Cannabinoids Screen Positive A (Negative) Discharge Plan Discharge Clinical Impression: Marijuana use, Hypomagnesemia Nausea and vomiting Qualifiers: Vomiting type: unspecified Qualified Code(s): R11.2 - Nausea with vomiting, unspecified Patient Disposition: Home, Self-Care Condition: Stable Instructions: Antibiotic Form, Dehydration (ED), Clear Liquid Diet (ED), Acute Nausea and Vomiting (ED), Hypomagnesemia (ED) Additional Instructions: Avoid further marijuana use as this is likely contributing to your nausea and vomiting. Utilize zofran as needed for further nausea. Increase fluid intake. Recommend electrolyte rich fluids, gatorade, pedialyte, body armour. Recommend clear liquids or bland diet until symptoms improve, such as bananas, rice, applesauce, toast, or crackers. Follow up with your primary care doctor for further evaluation. Return to the ED if you experience worsening or severe symptoms, unable to keep down food or drink, severe pain, fevers, rectal bleeding, vomiting blood, or any other symptoms of concern. Patient Language: Slovenian Prescriptions: New ondansetron 4 mg tablet,disintegrating 4 mg PO Q8H PRN (Reason: nausea and vomiting) Qty: 15 0RF No Action sertraline [Zoloft] 50 mg Tablet 75 mg PO DAILY ondansetron 4 mg tablet,disintegrating 4 mg PO Q4H 0 Days Qty: 10 0RF Rx Instructions: 1st dose 1-2 hr before radiation Follow-up/Referrals: [place], [Primary Care Provider] - Time of Disposition: 16:54
[2024-06-22] MEDS: SODIUM CHLORIDE 0.9% IV 1,000 ML 999 ML IV CONT (15:11)
[2024-06-22] MEDS: FAMOTIDINE 20 MG/2 ML VIAL IV PUSH (15:12)
[2024-06-22] MEDS: ONDANSETRON INJ 4 MG/2 ML VIAL IV PUSH (15:12)
[2024-06-22 15:16] LABS: Basophils Percent Auto 0.3 % (0.2-1.2); Hematocrit 40.2 % (37.0-47.0); Hemoglobin 13.9 g/dL (12.0-15.0); Immature Granulocyte Absolute 0.04 K/mm3 (0.00-0.031); Immature Granulocyte Percent A 0.3 % (0-0.5); Mean Corpuscular HGB Conc 34.6 g/dl (32-36); Mean Corpuscular Hemoglobin 31.2 pg (26-34); Mean Corpuscular Volume 90.1 fl (80-100); Mean Platelet Volume 10.8 fl (7.4-10.4); Monocytes Absolute Auto 0.2 K/mm3 (0.1-0.6); Monocytes Percent Auto 1.8 % (2.6-8.5); Neutrophils Absolute Auto 10.7 K/mm3 (1.3-6.7); Neutrophils Percent Auto 91.6 % (45.5-73.1); Platelet Count Result 305 k/mm3 (150-375); Red Blood Count 4.46 M/mm3 (4.2-5.4); Red Cell Distribution Width 13.4 % (11.5-14.5); White Blood Count 11.7 K/mm3 (4.5-10.0)
[2024-06-22 15:26] LABS: Alanine Aminotransferase 27 U/L (6-35); Alkaline Phosphatase 57 U/L (38-126); Anion Gap 18 mmol/L (4-12); Aspartate Amino Transferase 34 U/L (14-36); Bilirubin,Total 0.9 mg/dL (0.2-1.3); Blood Urea Nitrogen 12 mg/dL (7-17); Calcium 10.2 mg/dL (8.4-10.2); Carbon Dioxide 15 mmol/L (22-30); Chloride 106 mmol/L (98-107); Estimated CRCL calculation 89 ml/min; Estimated Glomerular Filt Rate > 60; Glucose 172 mg/dL (65-110); Lipase 34 U/L (23-300); Magnesium 1.2 mg/dL (1.6-2.3); Potassium 3.8 mmol/L (3.4-5.0); Sodium 139 mmol/L (137-145)
[2024-06-22] MEDS: MAGNESIUM SULF 2 GM/WATER 50ML 2 GM/50 ML BAG IVPB (16:07)
--- OUTSIDE RECORDS SUMMARY | 2024-06-22 16:13 | XMS_ITS | Clinical Summary ---
Author Organization [facility] Address [address] [place] [address] Care Team Providers Care Security Incident Response Specialist Name Role Phone Chris Swartz MD Primary Care Provider [phone] Allergies No known active allergies Medications sertraline [...] Department Care Team Description 05/24/2024 7:18 AM [facility] - 05/24/2024 11:06 AM [facility] Emergency [facility] [place] [address] Armida Marie MD Vomiting; Anxiety Discharge Disposition: [...] Sex Assigned at Female 05/24/2024 7:19 AM [facility] Legal Sex Female 9:31 AM [facility] Gender Identity Not on file Sexual Orientation Not on file Last Filed Vital Signs Vital Sign Reading Time Taken Comments Blood Pressure 144/92 05/24/2024 7:08 AM [facility] Pulse 54 05/24/2024 7:08 AM [facility] Temperature 37 C (98.6 F) 05/24/2024 7:08 AM [facility] Respiratory Rate 17 05/24/2024 7:08 AM [facility] Oxygen Saturation 98% 05/24/2024 7:08 AM [facility] Inhaled Oxygen Concentration - - Weight 53.3 kg (117 lb 8.1 oz) 05/24/2024 7:08 A M [facility] Height 156 cm (5' 1.42 ) 05/24/2024 7:08 AM [facility] Body Mass Index 21.9 05/24/2024 7:08 AM [facility] Plan of Treatment Health Maintenance Due Date [...] Comments TEST URINE STAT 05/24/2024 9:07 AM [facility] HC URINALYSIS AUTO W/O MICRO STAT 05/24/2024 9:07 AM [facility] LIPASE STAT 05/24/2024 7:45 AM [facility] COMPREHENSIVE METABOLIC PANEL STAT 05/24/2024 7:45 AM [facility] CBC W/DIFF AUTOMATED STAT 05/24/2024 7:45 AM [facility] from Last 3 Months Results * (ABNORMAL) URINALYSIS (05/24/2024 9:07 AM [facility]) SPECIMEN TYPE URINE CLEAN CATCH 05/24/2024 9:32 AM [facility] COLOR (U) LIGHT YELLOW 05/24/2024 9:48 AM [facility] TRANSPARENCY CLEAR 05/24/2024 9:48 AM [facility] SPECIFIC GRAVITY (U) 1.028 1.001 - 1.030 05/24/2024 9:48 AM [facility] U PH 5.5 5.0 - 9.0 05/24/2024 9:48 AM [facility] LEUKOCYTES (U) NEGATIVE NEGATIVE 05/24/2024 9:48 AM [facility] NITRITES NEGATIVE NEGATIVE 05/24/2024 9:48 AM [facility] PROTEIN RANDOM (U) 20 <30 MG/DL 05/24/2024 9:48 AM [facility] GLUCOSE (U) NORMAL NORMAL MG/DL 05/24/2024 9:48 AM [facility] KETONES MG/DL (U) 150(A) NEGATIVE MG/DL 05/24/2024 9:48 AM [facility] UROBILINOGEN NORMAL NORMAL MG/DL 05/24/2024 9:48 AM [facility] BILIRUBIN (U) NEGATIVE NEGATIVE MG/DL 05/24/2024 9:48 AM [facility] BLOOD (U) TRACE(A) NEGATIVE 05/24/2024 9:48 AM [facility] MUCUS FEW /LPF 05/24/2024 9:48 AM [facility] WBC/HPF 2 <6 /HPF 05/24/2024 9:48 AM [facility] RBC/HPF 3 <6 /HPF 05/24/2024 9:48 AM [facility] SQUAMOUS EPITHELIALS RARE /HPF 05/24/2024 9:48 AM [facility] URINE SPECIMEN OBTAINED BY CLEAN CATCH PROCEDURE / Unknown 05/24/2024 9:07 AM [facility] Armida Marie MD URINE ORDERABLES Final Result Performing Organization Address City/[facility]/ZIP Co de Phone Number [facility] [address] [place] [address], [place] [phone] * TEST URINE (05/24/2024 9:07 AM [facility]) Pathologist [facility] URINE HCG TEST NEGATIVE 05/24/2024 9:58 AM [facility] Comment: VERY DILUTE URINE SPECIMENS MAY NOT CONTAIN CLIPPING MARKER LEVELS OF HCG. IF IS STILL SUSPECTED, A SERUM HCG TEST IS RECOMMENDED. URINE SPECIMEN FROM URETHRA / Unknown 05/24/2024 9:07 AM [facility] Armida Marie MD URINE ORDERABLES Final Result [facility] [address] [place] [address], [place] [phone] * (ABNORMAL) COMPREHENSIVE METABOLIC PANEL (05/24/2024 7:45 AM [facility]) Pathologist [facility] GLUCOSE 97 70 - 99 MG/DL 05/24/2024 8:33 AM [facility] BUN 11 7 - 18 MG/DL 05/24/2024 8:33 AM [facility] CREATININE S/P/B 0.65 0.55 - 1.02 MG/DL 05/24/2024 8:33 AM [facility] SODIUM S/P/B 136 136 - 145 MMOL/L 05/24/2024 8:33 AM [facility] POTASSIUM S/P/B 3.3(L) 3.5 - 5.1 MMOL/L 05/24/2024 8:33 AM [facility] CHLORIDE S/P/B 104 97 - 115 MMOL/L 05/24/2024 8:33 AM [facility] CO2 19.0(L) 21 - 32 MMOL/L 05/24/2024 8:33 AM [facility] CALCIUM S/P/B 9.5 8.5 - 10.1 MG/DL 05/24/2024 8:33 AM [facility] BILIRUBIN TOTAL S/P/B 1.2 0.2 - 1.2 MG/DL 05/24/2024 8:33 AM [facility] Comment: THIS ASSAY IS NOT RECOMMENDED FOR PATIENTS UNDERGOING TREATMENT WITH ELTROMBOPAG DUE TO THE POTENTIAL FOR FALSELY ELEVATED RESULTS. TOTAL PROTEIN S/P/B 7.3 6.4 - 8.2 G/DL 05/24/2024 8:33 AM [facility] ALBUMIN S/P/B 4.2 3.4 - 5.0 G/DL 05/24/2024 8:33 AM [facility] AST 26 15 - 37 U/L 05/24/2024 8:33 AM [facility] ALT 37 14 - 55 U/L 05/24/2024 8:33 AM [facility] ALKALINE PHOSPHATASE S/P/B 47(L) 50 - 136 U/L 05/24/2024 8:33 AM [facility] ANION GAP 13.0(H) 2 - 10 MMOL/L 05/24/2024 8:33 AM [facility] BUN CREATININE RATIO 17.0 6 - 26 05/24/2024 8:33 AM [facility] A/G RATIO 1.4 1.0 - 2.0 RATIO 05/24/2024 8:33 AM [facility] GFR ESTIMATE >90 >90 ML/MIN/1.7 3 M2 05/24/2024 8:33 AM [facility] Comment: NOTE: eGFR is not calculated for patients <18 years of age or gender unknown. This is an estimated GFR calculation using the new CKD EPI creatinine equation without race and so does not require a correction factor for race. This estimated GFR should not be used for calculating drug doses. 05/24/2024 7:45 AM [facility] Armida Marie MD LABORATORY Final Result [facility] [address] [place] [id number], * (ABNORMAL) CBC W/DIFF AUTOMATED (05/24/2024 7:45 AM [facility]) WBC 7.50 4.5 - 13.0 x10'3/uL 05/24/2024 8:11 AM [facility] RBC 4.41 4.20 - 5.40 x10'6/uL 05/24/2024 8:11 AM [facility] HGB 13.5 12.0 - 16.0 G/DL 05/24/2024 8:11 AM [facility] HCT 39.7 38.0 - 48.0 % 05/24/2024 8:11 AM [facility] MCV 90.0 81.0 - 99.0 FL 05/24/2024 8:11 AM [facility] MCH 30.6 27.0 - 31.0 PG 05/24/2024 8:11 AM [facility] MCHC 34.0 32.0 - 36.0 G/DL 05/24/2024 8:11 AM [facility] RDW 13.2 11.5 - 14.5 % 05/24/2024 8:11 AM [facility] PLT 253 130 - 400 x10'3/uL 05/24/2024 8:11 AM [facility] MPV 10.9 9.3 - 12.2 FL 05/24/2024 8:11 AM [facility] DIFFERENTIAL TYPE AUTOMATED DIFFERENTIAL 05/24/2024 8:11 AM [facility] NEUTROPHILS % 67.5 % 05/24/2024 8:11 AM [facility] LYMPHOCYTES % 24.5 % 05/24/2024 8:11 AM [facility] MONOCYTES % 7.3 % 05/24/2024 8:11 AM [facility] EOSINOPHILS 0.0 % 05/24/2024 8:11 AM [facility] BASOPHILS 0.4 % 05/24/2024 8:11 AM [facility] IMMATURE GRANS % 0.3 % 05/25/19 8:11 AM [facility] ABS. NEUTROPHILS 5.06 1.80 - 8.00 x10'3/uL 05/24/2024 8:11 AM [facility] ABS. LYMPHOCYTES 1.84 1.20 - 5.20 x10'3/uL 05/24/2024 8:11 AM [facility] ABS. MONOCYTES 0.55 0.24 - 0.86 x10'3/uL 05/24/2024 8:11 AM [facility] ABS. EOSINOPHILS 0.00(L) 0.04 - 0.36 x10'3/uL 05/24/2024 8:11 AM [facility] ABS. BASOPHILS 0.03 0.01 - 0.08 x10'3/uL 05/24/2024 8:11 AM [facility] ABS. IMMATURE GRANULOCYTES 0.02 0.00 - 0.49 x10'3/uL 05/24/2024 8:11 AM [facility] 05/24/2024 7:45 AM [facility] Armida Marie MD LABORATORY Final Result [facility] [address] [place] [id number], [place] [phone] * LIPASE (05/24/2024 7:45 AM [facility]) LIPASE 22 13 - 75 UNITS/L 05/24/2024 8:33 AM [facility] 05/24/2024 7:45 AM [facility] Armida Marie MD LABORATORY Final Result [facility] [address] [place] [address], [place] [phone] from Last 3 Months Insurance Care Teams Security Incident Response Specialist Relationship Specialty Start Date End Date Chris Swartz MD [address] [place] [address] PCP - General PEDIATRICS 11/29/20
[2024-06-22 16:19] LABS: Add Urine Microscopic? NO; Appearance Urine Clear (Clear); Bilirubin Urine Negative (Negative); Blood Urine Negative (Negative); Color Urine Yellow (Yellow); Glucose Urine UA 3+ mg/dL (Negative); Ketones Urine 3+ mg/dL (Negative); Leukocyte Esterase Ur Negative LEU/UL (Negative); Nitrate Urine Negative (Negative); Protein Urine Negative (Negative); Specific Grav Ur 1.021 (1.001-1.035); Urobilinogen Urine 0.2 mg/dL (<2.0); pH Urine 5.5 (5.0-9.0)
[2024-06-22 16:36] LABS: Amphetamine Screen Urine Negative (Negative); Barbiturate Screen Urine Negative (Negative); Benzodiazepines Screen Urine Negative (Negative); Cannabinoid Screen Urine Positive (Negative); Cocaine Screen Urine Negative (Negative); Methadone Screen Urine Negative (Negative); Opiate Screen Urine Negative (Negative); Phencyclidine Screen Urine Negative (Negative)
[2024-06-22] MEDS: diphenhydrAMINE HCl INJ 50 MG/ML VIAL 25 MG IV PUSH (17:25)
[2024-06-22] MEDS: METOCLOPRAMIDE HCL INJ 10 MG/2 ML VIAL IV PUSH (17:25)
[2024-06-22] MEDS: MAGNESIUM OXIDE 400 MG TABLET PO (17:29)
[2024-06-22 17:31] VITALS: BP 143/93; PULSE 93; RESP 18; O2SAT 100
[2024-06-22 17:57] VITALS: BP 113/70; PULSE 62; RESP 16; O2SAT 97
== END 2024-06-22 17:59 | disposition home or self-care (01) ==
PROVIDERS: Emergency Provider Physician Assistant
DX: E83.42 Hypomagnesemia (principal); R11.2 Nausea with vomiting, unspecified; F12.90 Cannabis use, unspecified, uncomplicated; F41.9 Anxiety disorder, unspecified
CPT/HCPCS: 36415; 80053; 80307; 81003; 83690; 83735; 85025; 96361; 96365; 96372; 96375; 99284; A9270; J1200; J2405; J2765; J3475; J7030

== ENCOUNTER 2024-06-25 08:51 | Emergency (ER) | payer OTHER, SELFPAY ==
--- OUTSIDE RECORDS SUMMARY | 2024-06-25 08:56 | XMS_ITS | Clinical Summary ---
Author Organization [facility] Address [address] [place] [address] Care Team Providers Care Faceter Name Role Phone Chris Swartz MD Primary Care Provider [phone] Allergies No known active allergies Medications sertraline [...] Department Care Team Description 05/24/2024 7:18 AM PEDIATRIC LPN - 05/24/2024 11:06 AM [facility] Emergency [facility] [place] [address] Armida Marie MD Vomiting; Anxiety Discharge Disposition: [...] Sex Assigned at Female 05/24/2024 7:19 AM PEDIATRIC LPN Legal Sex Female 9:31 AM PEDIATRIC LPN Gender Identity Not on file Sexual Orientation Not on file Last Filed Vital Signs Vital Sign Reading Time Taken Comments Blood Pressure 144/92 05/24/2024 7:08 AM PEDIATRIC LPN Pulse 54 05/24/2024 7:08 AM PEDIATRIC LPN Temperature 37 C (98.6 F) 05/24/2024 7:08 AM PEDIATRIC LPN Respiratory Rate 17 05/24/2024 7:08 AM PEDIATRIC LPN Oxygen Saturation 98% 05/24/2024 7:08 AM PEDIATRIC LPN Inhaled Oxygen Concentration - - Weight 53.3 kg (117 lb 8.1 oz) 05/24/2024 7:08 A M PEDIATRIC LPN Height 156 cm (5' 1.42 ) 05/24/2024 7:08 AM PEDIATRIC LPN Body Mass Index 21.9 05/24/2024 7:08 AM PEDIATRIC LPN Plan of Treatment Health Maintenance Due Date [...] Comments TEST URINE STAT 05/24/2024 9:07 AM PEDIATRIC LPN HC URINALYSIS AUTO W/O MICRO STAT 05/24/2024 9:07 AM PEDIATRIC LPN LIPASE STAT 05/24/2024 7:45 AM PEDIATRIC LPN COMPREHENSIVE METABOLIC PANEL STAT 05/24/2024 7:45 AM PEDIATRIC LPN CBC W/DIFF AUTOMATED STAT 05/24/2024 7:45 AM PEDIATRIC LPN from Last 3 Months Results * (ABNORMAL) URINALYSIS (05/24/2024 9:07 AM PEDIATRIC LPN) SPECIMEN TYPE URINE CLEAN CATCH 05/24/2024 9:32 AM PEDIATRIC LPN [facility] COLOR (U) LIGHT YELLOW 05/24/2024 9:48 AM PEDIATRIC LPN [facility] TRANSPARENCY CLEAR 05/24/2024 9:48 AM PEDIATRIC LPN [facility] SPECIFIC GRAVITY (U) 1.028 1.001 - 1.030 05/24/2024 9:48 AM PEDIATRIC LPN [facility] U PH 5.5 5.0 - 9.0 05/24/2024 9:48 AM [facility] LEUKOCYTES (U) NEGATIVE NEGATIVE 05/24/2024 9:48 AM PEDIATRIC LPN [facility] NITRITES NEGATIVE NEGATIVE 05/24/2024 9:48 AM [facility] PROTEIN RANDOM (U) 20 <30 MG/DL 05/24/2024 9:48 AM [facility] GLUCOSE (U) NORMAL NORMAL MG/DL 05/24/2024 9:48 AM [facility] KETONES MG/DL (U) 150(A) NEGATIVE MG/DL 05/24/2024 9:48 AM [facility] UROBILINOGEN NORMAL NORMAL MG/DL 05/24/2024 9:48 AM [facility] BILIRUBIN (U) NEGATIVE NEGATIVE MG/DL 05/24/2024 9:48 AM [facility] BLOOD (U) TRACE(A) NEGATIVE 05/24/2024 9:48 AM [facility] MUCUS FEW /LPF 05/24/2024 9:48 AM PEDIATRIC LPN [facility] WBC/HPF 2 <6 /HPF 05/24/2024 9:48 AM PEDIATRIC LPN [facility] RBC/HPF 3 <6 /HPF 05/24/2024 9:48 AM PEDIATRIC LPN [facility] SQUAMOUS EPITHELIALS RARE /HPF 05/24/2024 9:48 AM PEDIATRIC LPN [facility] URINE SPECIMEN OBTAINED BY CLEAN CATCH PROCEDURE / Unknown 05/24/2024 9:07 AM PEDIATRIC LPN Armida Marie MD URINE ORDERABLES Final Result Performing Organization Address City/[facility]/ZIP Co de Phone Number [facility] [address] [place] [address], [place] [phone] * TEST URINE (05/24/2024 9:07 AM PEDIATRIC LPN) Pathologist [facility] URINE HCG TEST NEGATIVE 05/24/2024 9:58 AM PEDIATRIC LPN [facility] Comment: VERY DILUTE URINE SPECIMENS MAY NOT CONTAIN WEB SITE ADMINISTRATOR LEVELS OF HCG. IF IS STILL SUSPECTED, A SERUM HCG TEST IS RECOMMENDED. URINE SPECIMEN FROM [facility] / Unknown 05/24/2024 9:07 AM PEDIATRIC LPN Armida Marie MD URINE ORDERABLES Final Result [facility] [address] [place] [address], [place] [phone] * (ABNORMAL) COMPREHENSIVE METABOLIC PANEL (05/24/2024 7:45 AM PEDIATRIC LPN) Pathologist [facility] GLUCOSE 97 70 - 99 MG/DL 05/24/2024 8:33 AM PEDIATRIC LPN [facility] BUN 11 7 - 18 MG/DL 05/24/2024 8:33 AM PEDIATRIC LPN [facility] CREATININE S/P/B 0.65 0.55 - 1.02 MG/DL 05/24/2024 8:33 AM [facility] SODIUM S/P/B 136 136 - 145 MMOL/L 05/24/2024 8:33 AM [facility] POTASSIUM S/P/B 3.3(L) 3.5 - 5.1 MMOL/L 05/24/2024 8:33 AM [facility] CHLORIDE S/P/B 104 97 - 115 MMOL/L 05/24/2024 8:33 AM [facility] CO2 19.0(L) 21 - 32 MMOL/L 05/24/2024 8:33 AM [facility] CALCIUM S/P/B 9.5 8.5 - 10.1 MG/DL 05/24/2024 8:33 AM [facility] BILIRUBIN TOTAL S/P/B 1.2 0.2 - 1.2 MG/DL 05/24/2024 8:33 AM [facility] Comment: THIS ASSAY IS NOT RECOMMENDED FOR PATIENTS UNDERGOING TREATMENT WITH ELTROMBOPAG DUE TO THE POTENTIAL FOR FALSELY ELEVATED RESULTS. TOTAL PROTEIN S/P/B 7.3 6.4 - 8.2 G/DL 05/24/2024 8:33 AM [facility] ALBUMIN S/P/B 4.2 3.4 - 5.0 G/DL 05/24/2024 8:33 AM [facility] AST 26 15 - 37 U/L 05/24/2024 8:33 AM [facility] ALT 37 14 - 55 U/L 05/24/2024 8:33 AM [facility] ALKALINE PHOSPHATASE S/P/B 47(L) 50 - 136 U/L 05/24/2024 8:33 AM [facility] ANION GAP 13.0(H) 2 - 10 MMOL/L 05/24/2024 8:33 AM [facility] BUN CREATININE RATIO 17.0 6 - 26 05/24/2024 8:33 AM [facility] A/G RATIO 1.4 1.0 - 2.0 RATIO 05/24/2024 8:33 AM [facility] GFR ESTIMATE >90 >90 ML/MIN/1.7 3 M2 05/24/2024 8:33 AM [facility] Comment: NOTE: eGFR is not calculated for patients <18 years of age or gender unknown. This is an estimated GFR calculation using the new CKD EPI creatinine equation without race and so does not require a correction factor for race. This estimated GFR should not be used for calculating drug doses. 05/24/2024 7:45 AM PEDIATRIC LPN Armida Marie MD LABORATORY Final Result [facility] [address] [id number], * (ABNORMAL) CBC W/DIFF AUTOMATED (05/24/2024 7:45 AM PEDIATRIC LPN) WBC 7.50 4.5 - 13.0 x10'3/uL 05/24/2024 8:11 AM [facility] RBC 4.41 4.20 - 5.40 x10'6/uL 05/24/2024 8:11 AM [facility] HGB 13.5 12.0 - 16.0 G/DL 05/24/2024 8:11 AM [facility] HCT 39.7 38.0 - 48.0 % 05/24/2024 8:11 AM [facility] MCV 90.0 81.0 - 99.0 FL 05/24/2024 8:11 AM [facility] MCH 30.6 27.0 - 31.0 PG 05/24/2024 8:11 AM [facility] MCHC 34.0 32.0 - 36.0 G/DL 05/24/2024 8:11 AM [facility] RDW 13.2 11.5 - 14.5 % 05/24/2024 8:11 AM [facility] PLT 253 130 - 400 x10'3/uL 05/24/2024 8:11 AM [facility] MPV 10.9 9.3 - 12.2 FL 05/24/2024 8:11 AM [facility] DIFFERENTIAL TYPE AUTOMATED DIFFERENTIAL 05/24/2024 8:11 AM [facility] NEUTROPHILS % 67.5 % 05/24/2024 8:11 AM [facility] LYMPHOCYTES % 24.5 % 05/24/2024 8:11 AM [facility] MONOCYTES % 7.3 % 05/24/2024 8:11 AM [facility] EOSINOPHILS 0.0 % 05/24/2024 8:11 AM [facility] BASOPHILS 0.4 % 05/24/2024 8:11 AM [facility] IMMATURE GRANS % 0.3 % 05/25/19 8:11 AM [facility] ABS. NEUTROPHILS 5.06 1.80 - 8.00 x10'3/uL 05/24/2024 8:11 AM [facility] ABS. LYMPHOCYTES 1.84 1.20 - 5.20 x10'3/uL 05/24/2024 8:11 AM [facility] ABS. MONOCYTES 0.55 0.24 - 0.86 x10'3/uL 05/24/2024 8:11 AM PEDIATRIC LPN [facility] ABS. EOSINOPHILS 0.00(L) 0.04 - 0.36 x10'3/uL 05/24/2024 8:11 AM PEDIATRIC LPN [facility] ABS. BASOPHILS 0.03 0.01 - 0.08 x10'3/uL 05/24/2024 8:11 AM PEDIATRIC LPN [facility] ABS. IMMATURE GRANULOCYTES 0.02 0.00 - 0.49 x10'3/uL 05/24/2024 8:11 AM PEDIATRIC LPN [facility] 05/24/2024 7:45 AM PEDIATRIC LPN Armida Marie MD LABORATORY Final Result [facility] [address] [place] [address], [place] [phone] * LIPASE (05/24/2024 7:45 AM PEDIATRIC LPN) LIPASE 22 13 - 75 UNITS/L 05/24/2024 8:33 AM PEDIATRIC LPN [facility] 05/24/2024 7:45 AM PEDIATRIC LPN Armida Marie MD LABORATORY Final Result [facility] [address] [place] [address], [place] [phone] from Last 3 Months Insurance Care Teams Faceter Relationship Specialty Start Date End Date Chris Swartz MD [address] [place] [address] PCP - General PEDIATRICS 11/29/20
[2024-06-25 09:00] VITALS: O2SAT 99
[2024-06-25 09:01] VITALS: BP 156/109; PULSE 70; RESP 16; O2SAT 97
[2024-06-25] MEDS: SODIUM CHLORIDE 0.9% IV 1,000 ML 999 ML IV CONT (09:14)
[2024-06-25] MEDS: HALOPERIDOL LACTATE 5 MG/ML VIAL IM (09:14)
[2024-06-25 09:19] LABS: Basophils Percent Auto 0.5 % (0.2-1.2); Eosinophils Absolute Auto 0.1 K/mm3 (0-0.3); Eosinophils Percent Auto 1.2 % (0-4.4); Hematocrit 40.3 % (37.0-47.0); Hemoglobin 13.6 g/dL (12.0-15.0); Immature Granulocyte Absolute 0.02 K/mm3 (0.00-0.031); Immature Granulocyte Percent A 0.3 % (0-0.5); Lymphocytes Absolute Auto 2.32 K/mm3 (0.9-3.2); Lymphocytes Percent Auto 29.9 % (18.3-44.2); Mean Corpuscular HGB Conc 33.7 g/dl (32-36); Mean Corpuscular Hemoglobin 30.8 pg (26-34); Mean Corpuscular Volume 91.4 fl (80-100); Mean Platelet Volume 10.6 fl (7.4-10.4); Monocytes Absolute Auto 0.6 K/mm3 (0.1-0.6); Neutrophils Absolute Auto 4.7 K/mm3 (1.3-6.7); Neutrophils Percent Auto 60.1 % (45.5-73.1); Platelet Count Result 301 k/mm3 (150-375); Red Blood Count 4.41 M/mm3 (4.2-5.4); Red Cell Distribution Width 13.2 % (11.5-14.5); White Blood Count 7.8 K/mm3 (4.5-10.0)
[2024-06-25 09:20] VITALS: BP 149/91; PULSE 70; RESP 16; TEMP 36.6; O2SAT 100
[2024-06-25 09:21] LABS: BEDSIDEPREGUCG Negative (Negative)
--- OUTSIDE RECORDS SUMMARY | 2024-06-25 09:22 | XMS_ITS | Clinical Summary ---
Author Organization [facility] Address [address] [place] [address] Care Team Providers Care Manufacturing Management Associate Name Role Phone Chris Swartz MD Primary Care Provider [phone] Allergies No known active allergies Medications sertraline [...] Department Care Team Description 05/24/2024 7:18 AM MACHINE ROPE MAKER - 05/24/2024 11:06 AM [facility] Emergency [facility] [place] [address] Armida Marie MD Vomiting; Anxiety Discharge Disposition: [...] Sex Assigned at Female 05/24/2024 7:19 AM MACHINE ROPE MAKER Legal Sex Female 9:31 AM MACHINE ROPE MAKER Gender Identity Not on file Sexual Orientation Not on file Last Filed Vital Signs Vital Sign Reading Time Taken Comments Blood Pressure 144/92 05/24/2024 7:08 AM MACHINE ROPE MAKER Pulse 54 05/24/2024 7:08 AM MACHINE ROPE MAKER Temperature 37 C (98.6 F) 05/24/2024 7:08 AM MACHINE ROPE MAKER Respiratory Rate 17 05/24/2024 7:08 AM MACHINE ROPE MAKER Oxygen Saturation 98% 05/24/2024 7:08 AM MACHINE ROPE MAKER Inhaled Oxygen Concentration - - Weight 53.3 kg (117 lb 8.1 oz) 05/24/2024 7:08 A M MACHINE ROPE MAKER Height 156 cm (5' 1.42 ) 05/24/2024 7:08 AM MACHINE ROPE MAKER Body Mass Index 21.9 05/24/2024 7:08 AM MACHINE ROPE MAKER Plan of Treatment Health Maintenance Due Date [...] Comments TEST URINE STAT 05/24/2024 9:07 AM MACHINE ROPE MAKER HC URINALYSIS AUTO W/O MICRO STAT 05/24/2024 9:07 AM MACHINE ROPE MAKER LIPASE STAT 05/24/2024 7:45 AM MACHINE ROPE MAKER COMPREHENSIVE METABOLIC PANEL STAT 05/24/2024 7:45 AM MACHINE ROPE MAKER CBC W/DIFF AUTOMATED STAT 05/24/2024 7:45 AM MACHINE ROPE MAKER from Last 3 Months Results * (ABNORMAL) URINALYSIS (05/24/2024 9:07 AM MACHINE ROPE MAKER) SPECIMEN TYPE URINE CLEAN CATCH 05/24/2024 9:32 AM MACHINE ROPE MAKER [facility] COLOR (U) LIGHT YELLOW 05/24/2024 9:48 AM MACHINE ROPE MAKER [facility] TRANSPARENCY CLEAR 05/24/2024 9:48 AM MACHINE ROPE MAKER [facility] SPECIFIC GRAVITY (U) 1.028 1.001 - 1.030 05/24/2024 9:48 AM MACHINE ROPE MAKER [facility] U PH 5.5 5.0 - 9.0 05/24/2024 9:48 AM [facility] LEUKOCYTES (U) NEGATIVE NEGATIVE 05/24/2024 9:48 AM MACHINE ROPE MAKER [facility] NITRITES NEGATIVE NEGATIVE 05/24/2024 9:48 AM [facility] PROTEIN RANDOM (U) 20 <30 MG/DL 05/24/2024 9:48 AM [facility] GLUCOSE (U) NORMAL NORMAL MG/DL 05/24/2024 9:48 AM [facility] KETONES MG/DL (U) 150(A) NEGATIVE MG/DL 05/24/2024 9:48 AM [facility] UROBILINOGEN NORMAL NORMAL MG/DL 05/24/2024 9:48 AM [facility] BILIRUBIN (U) NEGATIVE NEGATIVE MG/DL 05/24/2024 9:48 AM [facility] BLOOD (U) TRACE(A) NEGATIVE 05/24/2024 9:48 AM [facility] MUCUS FEW /LPF 05/24/2024 9:48 AM MACHINE ROPE MAKER [facility] WBC/HPF 2 <6 /HPF 05/24/2024 9:48 AM MACHINE ROPE MAKER [facility] RBC/HPF 3 <6 /HPF 05/24/2024 9:48 AM MACHINE ROPE MAKER [facility] SQUAMOUS EPITHELIALS RARE /HPF 05/24/2024 9:48 AM MACHINE ROPE MAKER [facility] URINE SPECIMEN OBTAINED BY CLEAN CATCH PROCEDURE / Unknown 05/24/2024 9:07 AM MACHINE ROPE MAKER Armida Marie MD URINE ORDERABLES Final Result Performing Organization Address City/[facility]/ZIP Co de Phone Number [facility] [address] [place] [address], [place] [phone] * TEST URINE (05/24/2024 9:07 AM MACHINE ROPE MAKER) Pathologist [facility] URINE HCG TEST NEGATIVE 05/24/2024 9:58 AM MACHINE ROPE MAKER [facility] Comment: VERY DILUTE URINE SPECIMENS MAY NOT CONTAIN CORPORATE SERVICES MANAGER LEVELS OF HCG. IF IS STILL SUSPECTED, A SERUM HCG TEST IS RECOMMENDED. URINE SPECIMEN FROM [facility] / Unknown 05/24/2024 9:07 AM MACHINE ROPE MAKER Armida Marie MD URINE ORDERABLES Final Result [facility] [address] [place] [address], [place] [phone] * (ABNORMAL) COMPREHENSIVE METABOLIC PANEL (05/24/2024 7:45 AM MACHINE ROPE MAKER) Pathologist [facility] GLUCOSE 97 70 - 99 MG/DL 05/24/2024 8:33 AM MACHINE ROPE MAKER [facility] BUN 11 7 - 18 MG/DL 05/24/2024 8:33 AM MACHINE ROPE MAKER [facility] CREATININE S/P/B 0.65 0.55 - 1.02 MG/DL 05/24/2024 8:33 AM [facility] SODIUM S/P/B 136 136 - 145 MMOL/L 05/24/2024 8:33 AM [facility] POTASSIUM S/P/B 3.3(L) 3.5 - 5.1 MMOL/L 05/24/2024 8:33 AM [facility] CHLORIDE S/P/B 104 97 - 115 MMOL/L 05/24/2024 8:33 AM [facility] CO2 19.0(L) 21 - 32 MMOL/L 05/24/2024 8:33 AM [facility] CALCIUM S/P/B 9.5 8.5 - 10.1 MG/DL 05/24/2024 8:33 AM [facility] BILIRUBIN TOTAL S/P/B 1.2 0.2 - 1.2 MG/DL 05/24/2024 8:33 AM [facility] Comment: THIS ASSAY IS NOT RECOMMENDED FOR PATIENTS UNDERGOING TREATMENT WITH ELTROMBOPAG DUE TO THE POTENTIAL FOR FALSELY ELEVATED RESULTS. TOTAL PROTEIN S/P/B 7.3 6.4 - 8.2 G/DL 05/24/2024 8:33 AM [facility] ALBUMIN S/P/B 4.2 3.4 - 5.0 G/DL 05/24/2024 8:33 AM [facility] AST 26 15 - 37 U/L 05/24/2024 8:33 AM [facility] ALT 37 14 - 55 U/L 05/24/2024 8:33 AM [facility] ALKALINE PHOSPHATASE S/P/B 47(L) 50 - 136 U/L 05/24/2024 8:33 AM [facility] ANION GAP 13.0(H) 2 - 10 MMOL/L 05/24/2024 8:33 AM [facility] BUN CREATININE RATIO 17.0 6 - 26 05/24/2024 8:33 AM [facility] A/G RATIO 1.4 1.0 - 2.0 RATIO 05/24/2024 8:33 AM [facility] GFR ESTIMATE >90 >90 ML/MIN/1.7 3 M2 05/24/2024 8:33 AM [facility] Comment: NOTE: eGFR is not calculated for patients <18 years of age or gender unknown. This is an estimated GFR calculation using the new CKD EPI creatinine equation without race and so does not require a correction factor for race. This estimated GFR should not be used for calculating drug doses. 05/24/2024 7:45 AM MACHINE ROPE MAKER Armida Marie MD LABORATORY Final Result [facility] [address] [id number], * (ABNORMAL) CBC W/DIFF AUTOMATED (05/24/2024 7:45 AM MACHINE ROPE MAKER) WBC 7.50 4.5 - 13.0 x10'3/uL 05/24/2024 8:11 AM [facility] RBC 4.41 4.20 - 5.40 x10'6/uL 05/24/2024 8:11 AM [facility] HGB 13.5 12.0 - 16.0 G/DL 05/24/2024 8:11 AM [facility] HCT 39.7 38.0 - 48.0 % 05/24/2024 8:11 AM [facility] MCV 90.0 81.0 - 99.0 FL 05/24/2024 8:11 AM [facility] MCH 30.6 27.0 - 31.0 PG 05/24/2024 8:11 AM [facility] MCHC 34.0 32.0 - 36.0 G/DL 05/24/2024 8:11 AM [facility] RDW 13.2 11.5 - 14.5 % 05/24/2024 8:11 AM [facility] PLT 253 130 - 400 x10'3/uL 05/24/2024 8:11 AM [facility] MPV 10.9 9.3 - 12.2 FL 05/24/2024 8:11 AM [facility] DIFFERENTIAL TYPE AUTOMATED DIFFERENTIAL 05/24/2024 8:11 AM [facility] NEUTROPHILS % 67.5 % 05/24/2024 8:11 AM [facility] LYMPHOCYTES % 24.5 % 05/24/2024 8:11 AM [facility] MONOCYTES % 7.3 % 05/24/2024 8:11 AM [facility] EOSINOPHILS 0.0 % 05/24/2024 8:11 AM [facility] BASOPHILS 0.4 % 05/24/2024 8:11 AM [facility] IMMATURE GRANS % 0.3 % 05/25/19 8:11 AM [facility] ABS. NEUTROPHILS 5.06 1.80 - 8.00 x10'3/uL 05/24/2024 8:11 AM [facility] ABS. LYMPHOCYTES 1.84 1.20 - 5.20 x10'3/uL 05/24/2024 8:11 AM [facility] ABS. MONOCYTES 0.55 0.24 - 0.86 x10'3/uL 05/24/2024 8:11 AM MACHINE ROPE MAKER [facility] ABS. EOSINOPHILS 0.00(L) 0.04 - 0.36 x10'3/uL 05/24/2024 8:11 AM MACHINE ROPE MAKER [facility] ABS. BASOPHILS 0.03 0.01 - 0.08 x10'3/uL 05/24/2024 8:11 AM MACHINE ROPE MAKER [facility] ABS. IMMATURE GRANULOCYTES 0.02 0.00 - 0.49 x10'3/uL 05/24/2024 8:11 AM MACHINE ROPE MAKER [facility] 05/24/2024 7:45 AM MACHINE ROPE MAKER Armida Marie MD LABORATORY Final Result [facility] [address] [place] [id number], [place] [phone] * LIPASE (05/24/2024 7:45 AM MACHINE ROPE MAKER) LIPASE 22 13 - 75 UNITS/L 05/24/2024 8:33 AM MACHINE ROPE MAKER [facility] 05/24/2024 7:45 AM MACHINE ROPE MAKER Armida Marie MD LABORATORY Final Result [facility] [address] [place] [address], [place] [phone] from Last 3 Months Insurance Care Teams Manufacturing Management Associate Relationship Specialty Start Date End Date Chris Swartz MD [address] [place] [address] PCP - General PEDIATRICS 11/29/20
[2024-06-25 09:31] VITALS: BP 133/76; PULSE 70; RESP 16; O2SAT 97
[2024-06-25 09:34] LABS: Add Urine Microscopic? YES; Appearance Urine Turbid (Clear); Bacteria Urine 4+ /hpf; Bilirubin Urine 1+ (Negative); Blood Urine Trace (Negative); Color Urine Dark Yellow (Yellow); Glucose Urine UA Negative (Negative); Ketones Urine 2+ mg/dL (Negative); Leukocyte Esterase Ur 2+ LEU/UL (Negative); Mucus Urine Present /lpf; Need Manual Microscopic Reviewed; Nitrate Urine Negative (Negative); Protein Urine 1+ mg/dL (Negative); RBC Urine 0-2 /hpf (0-2); Specific Grav Ur 1.029 (1.001-1.035); Squamous Epithelial Cell Urine Many /hpf (Few); WBC Urine >100 /hpf (0-3); pH Urine 5.5 (5.0-9.0)
[2024-06-25 09:35] LABS: Lactic Acid Reflex 1.5 mmol/L (0.7-2.0)
[2024-06-25 09:36] LABS: Alanine Aminotransferase 28 U/L (6-35); Alkaline Phosphatase 54 U/L (38-126); Anion Gap 14 mmol/L (4-12); Aspartate Amino Transferase 29 U/L (14-36); Bilirubin,Total 1.5 mg/dL (0.2-1.3); Blood Urea Nitrogen 11 mg/dL (7-17); Calcium 9.9 mg/dL (8.4-10.2); Carbon Dioxide 19 mmol/L (22-30); Chloride 103 mmol/L (98-107); Estimated CRCL calculation 84 ml/min; Estimated Glomerular Filt Rate > 60; Glucose 110 mg/dL (65-110); Lipase 42 U/L (23-300); Potassium 3.2 mmol/L (3.4-5.0); Sodium 136 mmol/L (137-145)
--- NOTE | 2024-06-25 09:37 | ED_ITS ---
HPI - General Adult General Chief complaint: Nausea/Vomiting/Diarrhea Stated complaint: n/v, dizziness Time Seen by Provider: 06/25/24 08:52 History of Present Illness HPI narrative: 18-year-old female presented emergency department for evaluation for persistent nausea vomiting diarrhea. Patient denies any associated abdominal pain. Patient states he does use THC daily and has been previously informed that she may have cannabinoid hyperemesis syndrome. Related Data Home Medications ?Medication ?Instructions ?Recorded ?Confirmed ?Last Taken ?Type sertraline 50 mg tablet (Zoloft) 75 mg PO DAILY 02/21/22 02/21/22 Unknown History Allergies Allergy/AdvReac Type Severity Reaction Status Date / Time No Known Allergies Allergy Verified 06/25/24 08:52 Review of Systems 2 Review of Systems: All systems reviewed & are unremarkable except as noted in HPI and below PMFSH Past Medical History Medical History (Updated 06/25/24 @ 10:06 by Laz Marmolejo MD) Cannabinoid hyperemesis syndrome Anxiety Social History Social History (Updated 06/22/24 @ 15:12 by Maria Victoria Mazariegos PA-C) Smoking status: Never smoker Alcohol intake: never Substance use: current Substance use type: marijuana Exam 2 Narrative: APPEARANCE: Well appearing, no pain, no distress, well-nourished. HEAD: normocephalic, atraumatic. EYES: PERRLA/EOMI, conjunctivae clear. NOSE: Normal no drainage EARS:TMS clear with good light reflex. THROAT: Pharynx clear, no exudate. NECK: Supple. No adenopathy, no masses. RESPIRATORY: Airway patent, respirations nonlabored. Clear to auscultation bilaterally, no rales, rhonchi, wheezing. CARDIOVASCULAR: Regular rate and rhythm without murmurs rubs or gallops. ABDOMINAL: Soft, nontender, nondistended, normal bowel sounds MUSCULOSKELETAL: Moves all extremities. Strength/ROM intact, No edema, No calf tenderness. NEURO: Alert. Cranial nerves II through XII intact. Grossly intact SKIN: Warm, dry. Normal Color Course Vital Signs Vital signs: Vital Signs Pulse Oximetry 99 06/25/24 09:00 Temperature 97.9 F 06/25/24 10:31 Pulse Rate 80 06/25/24 10:31 Respiratory Rate 16 06/25/24 10:31 Blood Pressure 126/59 L 06/25/24 10:31 Pulse Oximetry 98 06/25/24 10:31 Medical Decision Making MDM Narrative Medical decision making narrative: 18-year-old female presented to the emergency department for evaluation for nausea vomiting diarrhea. Patient was treated with IV fluids and IM Haldol. UA was concerning for urinary tract infection and patient was also treated with a IV dose of Rocephin. Patient was discharged home on Keflex. Patient is currently afebrile with no leukocytosis and hemoglobin of 13.6. Patient does have a mild hypokalemia with no other significant electrolyte abnormalities on her CMP. On re-evaluation patient does feel improved. Patient was treated with her antibiotics. Patient was once again reinforced to educate herself on cannabinoid hyperemesis syndrome. All questions concerns were addressed patient was comfortable the plan for discharge and close follow-up. Differential Diagnosis Differential Diagnosis: COVID, RSV, influenza, dehydration, viral etiology, cannabinoid hyperemesis syndrome Vital Signs Vital Signs: Vital Signs Pulse Oximetry 99 06/25/24 09:00 Temperature 97.9 F 06/25/24 10:31 Pulse Rate 80 06/25/24 10:31 Respiratory Rate 16 06/25/24 10:31 Blood Pressure 126/59 L 06/25/24 10:31 Pulse Oximetry 98 06/25/24 10:31 Lab Data Lab results reviewed: Yes I reviewed the patient's lab results. 06/25/24 09:13 06/25/24 09:13 Labs: Lab Results 06/25/24 06/25/24 Range/Units 09:13 09:20 WBC 7.8 (4.5-10.0) K/mm3 RBC 4.41 (4.2-5.4) M/mm3 Hgb 13.6 (12.0-15.0) g/dL Hct 40.3 (37.0-47.0) % MCV 91.4 (80-100) fl MCH 30.8 (26-34) pg MCHC 33.7 (32-36) g/dl RDW 13.2 (11.5-14.5) % Plt Count 301 (150-375) k/mm3 MPV 10.6 H (7.4-10.4) fl Immature Gran % (Auto) 0.3 (0-0.5) % Neut % (Auto) 60.1 (45.5-73.1) % Lymph % (Auto) 29.9 (18.3-44.2) % [place] % (Auto) 8.0 (2.6-8.5) % Eos % (Auto) 1.2 (0-4.4) % Baso % (Auto) 0.5 (0.2-1.2) % Lymph # (Auto) 2.32 (0.9-3.2) K/mm3 [place] # (Auto) 0.6 (0.1-0.6) K/mm3 Eos # (Auto) 0.1 (0-0.3) K/mm3 Baso # (Auto) 0.0 (0.0-0.1) K/mm3 Abs Immat Gran (auto) 0.02 (0.00-0.031) K/mm3 Absolute Neuts (auto) 4.7 (1.3-6.7) K/mm3 Absolute Nucleated RBC 0.000 (0.0-0.012) K/mm3 Nucleated RBC % 0.0 (0.0-0.2) % Sodium 136 L (137-145) mmol/L Potassium 3.2 L (3.4-5.0) mmol/L Chloride 103 (98-107) mmol/L Carbon Dioxide 19 L (22-30) mmol/L Anion Gap 14 H (4-12) mmol/L BUN 11 (7-17) mg/dL Creatinine 0.69 L (0.7-1.0) mg/dL Estim Creat Clear Calc 84 ml/min Estimated GFR > 60 (59 - ) Glucose 110 (65-110) mg/dL Lactic Acid 1.5 (0.7-2.0) mmol/L Calcium 9.9 (8.4-10.2) mg/dL Total Bilirubin 1.5 H (0.2-1.3) mg/dL AST 29 (14-36) U/L ALT 28 (6-35) U/L Alkaline Phosphatase 54 (38-126) U/L Total Protein 8.0 (6.3-8.2) g/dL Albumin 5.0 (3.5-5.1) g/dL Lipase 42 (23-300) U/L Urine Color Dark yellow (Yellow) Urine Appearance Turbid H (Clear) Urine pH 5.5 (5.0-9.0) Ur Specific [place] 1.029 (1.001-1.035) Urine Protein 1+ H (Negative) mg/dL Urine Glucose (UA) Negative (Negative) mg/dL Urine Ketones 2+ H (Negative) mg/dL Ur Blood (Man) Trace (Negative) Urine Nitrate Negative (Negative) Urine Bilirubin 1+ H (Negative) Urine Urobilinogen 1.0 (<2.0) mg/dL Add Ur Microanalysis Reviewed Leukocyte Esterase Rfl 2+ H (Negative) BRYAN/UL Urine RBC 0-2 (0-2) /hpf Urine WBC >100 H (0-3) /hpf Ur Squamous Epith Cells Many H (Few) /hpf Urine Bacteria 4+ H /hpf Urine Casts 6-10 Urine Mucus Present /lpf POC Urine HCG, Qual Negative (Negative) Discharge Plan Discharge Clinical Impression: Cannabinoid hyperemesis syndrome, UTI (urinary tract infection) Patient Disposition: Home, Self-Care Condition: Stable Instructions: Antibiotic Form, Clear Liquid Diet (ED), Acute Nausea and Vomiting (ED) Additional Instructions: Zofran as needed for nausea control. Clear liquid diet for the next 1-2 days. Have close follow-up with your primary care physician. Continue to educate yourself cannabinoid hyperemesis syndrome. Patient Language: Cuban Prescriptions: New cephalexin 500 mg capsule 500 mg PO Q8H 7 Days Qty: 21 0RF ondansetron 4 mg tablet,disintegrating 4 mg PO Q8H PRN (Reason: nausea and vomiting) Qty: 14 0RF No Action sertraline [Zoloft] 50 mg Tablet 75 mg PO DAILY ondansetron 4 mg tablet,disintegrating 4 mg PO Q4H 0 Days Qty: 10 0RF Rx Instructions: 1st dose 1-2 hr before radiation ondansetron 4 mg tablet,disintegrating 4 mg PO Q8H PRN (Reason: nausea and vomiting) Qty: 15 0RF Follow-up/Referrals: [place], [Primary Care Provider] -
[2024-06-25 10:01] VITALS: BP 118/60; PULSE 88; RESP 16; TEMP 36.6; O2SAT 98
[2024-06-25] MEDS: POTASSIUM CHLORIDE 20 MEQ PACKET (FOR LIQUID) PO (10:01)
[2024-06-25 10:31] VITALS: BP 126/59; PULSE 80; RESP 16; TEMP 36.6; O2SAT 98
== END 2024-06-25 10:52 | disposition home or self-care (01) ==
PROVIDERS: Emergency Provider Emergency Medicine
DX: N39.0 Urinary tract infection, site not specified (principal); R11.2 Nausea with vomiting, unspecified; F12.90 Cannabis use, unspecified, uncomplicated; F41.9 Anxiety disorder, unspecified
CPT/HCPCS: 36415; 80053; 81001; 81025; 83605; 83690; 85025; 96365; 96372; 99284; A9270; J0696; J1630; J7030

== ENCOUNTER 2024-07-26 23:18 | Emergency (ER) | payer OTHER, SELFPAY ==
[2024-07-26 23:19] VITALS: BP 137/102; PULSE 66; RESP 18; TEMP 36.4; O2SAT 99
--- OUTSIDE RECORDS SUMMARY | 2024-07-26 23:19 | XMS_ITS | Clinical Summary ---
Author Organization [facility] Address [address] [place] [address] Care Team Providers Care [employer] Name Role Phone Chris Swartz MD Primary Care Provider [phone] Allergies No known active allergies Medications sertraline [...] Department Care Team Description 05/24/2024 7:18 AM COMMUNITY CENTER WORKER - 05/24/2024 11:06 AM [facility] Emergency [facility] [place] [address] Armida Marie MD Vomiting; Anxiety Discharge Disposition: [...] Sex Assigned at Female 05/24/2024 7:19 AM COMMUNITY CENTER WORKER Legal Sex Female 9:31 AM COMMUNITY CENTER WORKER Gender Identity Not on file Sexual Orientation Not on file Last Filed Vital Signs Vital Sign Reading Time Taken Comments Blood Pressure 144/92 05/24/2024 7:08 AM COMMUNITY CENTER WORKER Pulse 54 05/24/2024 7:08 AM COMMUNITY CENTER WORKER Temperature 37 C (98.6 F) 05/24/2024 7:08 AM COMMUNITY CENTER WORKER Respiratory Rate 17 05/24/2024 7:08 AM COMMUNITY CENTER WORKER Oxygen Saturation 98% 05/24/2024 7:08 AM COMMUNITY CENTER WORKER Inhaled Oxygen Concentration - - Weight 53.3 kg (117 lb 8.1 oz) 05/24/2024 7:08 A M COMMUNITY CENTER WORKER Height 156 cm (5' 1.42 ) 05/24/2024 7:08 AM COMMUNITY CENTER WORKER Body Mass Index 21.9 05/24/2024 7:08 AM COMMUNITY CENTER WORKER Plan of Treatment Health Maintenance Due Date [...] 5 Years) and At-Risk Patients (6 to 49 Years) Aged Out No longer eligible b ased on patient's age to complete this topic RSV Immunizations Under 20 Months Aged Out No longer eligible b ased on patient's age to complete this topic Procedures Procedure Name Priority Date/Time Associated Diagnosis Comments TEST URINE STAT 05/24/2024 9:07 AM COMMUNITY CENTER WORKER HC URINALYSIS AUTO W/O MICRO STAT 05/24/2024 9:07 AM COMMUNITY CENTER WORKER LIPASE STAT 05/24/2024 7:45 AM COMMUNITY CENTER WORKER COMPREHENSIVE METABOLIC PANEL STAT 05/24/2024 7:45 AM COMMUNITY CENTER WORKER CBC W/DIFF AUTOMATED STAT 05/24/2024 7:45 AM COMMUNITY CENTER WORKER from Last 3 Months Results * (ABNORMAL) URINALYSIS (05/24/2024 9:07 AM COMMUNITY CENTER WORKER) SPECIMEN TYPE URINE CLEAN CATCH 05/24/2024 9:32 AM COMMUNITY CENTER WORKER [facility] COLOR (U) LIGHT YELLOW 05/24/2024 9:48 AM COMMUNITY CENTER WORKER [facility] TRANSPARENCY CLEAR 05/24/2024 9:48 AM COMMUNITY CENTER WORKER [facility] SPECIFIC GRAVITY (U) 1.028 1.001 - 1.030 05/24/2024 9:48 AM COMMUNITY CENTER WORKER [facility] U PH 5.5 5.0 - 9.0 05/24/2024 9:48 AM [facility] LEUKOCYTES (U) NEGATIVE NEGATIVE 05/24/2024 9:48 AM COMMUNITY CENTER WORKER [facility] NITRITES NEGATIVE NEGATIVE 05/24/2024 9:48 AM [facility] PROTEIN RANDOM (U) 20 <30 MG/DL 05/24/2024 9:48 AM [facility] GLUCOSE (U) NORMAL NORMAL MG/DL 05/24/2024 9:48 AM [facility] KETONES MG/DL (U) 150(A) NEGATIVE MG/DL 05/24/2024 9:48 AM [facility] UROBILINOGEN NORMAL NORMAL MG/DL 05/24/2024 9:48 AM [facility] BILIRUBIN (U) NEGATIVE NEGATIVE MG/DL 05/24/2024 9:48 AM [facility] BLOOD (U) TRACE(A) NEGATIVE 05/24/2024 9:48 AM [facility] MUCUS FEW /LPF 05/24/2024 9:48 AM COMMUNITY CENTER WORKER [facility] WBC/HPF 2 <6 /HPF 05/24/2024 9:48 AM COMMUNITY CENTER WORKER [facility] RBC/HPF 3 <6 /HPF 05/24/2024 9:48 AM COMMUNITY CENTER WORKER [facility] SQUAMOUS EPITHELIALS RARE /HPF 05/24/2024 9:48 AM COMMUNITY CENTER WORKER [facility] URINE SPECIMEN OBTAINED BY CLEAN CATCH PROCEDURE / Unknown 05/24/2024 9:07 AM COMMUNITY CENTER WORKER Armida Marie MD URINE ORDERABLES Final Result Performing Organization Address City/[facility]/ZIP Co de Phone Number [facility] [address] [place] [address], [place] [phone] * TEST URINE (05/24/2024 9:07 AM COMMUNITY CENTER WORKER) Pathologist [facility] [place] URINE HCG TEST NEGATIVE 05/24/2024 9:58 AM COMMUNITY CENTER WORKER [facility] Comment: VERY DILUTE URINE SPECIMENS MAY NOT CONTAIN SAT TUTOR LEVELS OF HCG. IF IS STILL SUSPECTED, A SERUM HCG TEST IS RECOMMENDED. URINE SPECIMEN FROM [facility] / Unknown 05/24/2024 9:07 AM COMMUNITY CENTER WORKER Armida Marie MD URINE ORDERABLES Final Result [facility] [address] [place] [address], [place] [phone] * (ABNORMAL) COMPREHENSIVE METABOLIC PANEL (05/24/2024 7:45 AM COMMUNITY CENTER WORKER) Pathologist [facility] [place] GLUCOSE 97 70 - 99 MG/DL 05/24/2024 8:33 AM COMMUNITY CENTER WORKER [facility] BUN 11 7 - 18 MG/DL 05/24/2024 8:33 AM COMMUNITY CENTER WORKER [facility] CREATININE S/P/B 0.65 0.55 - 1.02 MG/DL 05/24/2024 8:33 AM [facility] SODIUM S/P/B 136 136 - 145 MMOL/L 05/24/2024 8:33 AM [facility] POTASSIUM S/P/B 3.3(L) 3.5 - 5.1 MMOL/L 05/24/2024 8:33 AM [facility] CHLORIDE S/P/B 104 97 - 115 MMOL/L 05/24/2024 8:33 AM [facility] CO2 19.0(L) 21 - 32 MMOL/L 05/24/2024 8:33 AM [facility] CALCIUM S/P/B 9.5 8.5 - 10.1 MG/DL 05/24/2024 8:33 AM [facility] BILIRUBIN TOTAL S/P/B 1.2 0.2 - 1.2 MG/DL 05/24/2024 8:33 AM [facility] Comment: THIS ASSAY IS NOT RECOMMENDED FOR PATIENTS UNDERGOING TREATMENT WITH ELTROMBOPAG DUE TO THE POTENTIAL FOR FALSELY ELEVATED RESULTS. TOTAL PROTEIN S/P/B 7.3 6.4 - 8.2 G/DL 05/24/2024 8:33 AM [facility] ALBUMIN S/P/B 4.2 3.4 - 5.0 G/DL 05/24/2024 8:33 AM [facility] AST 26 15 - 37 U/L 05/24/2024 8:33 AM [facility] ALT 37 14 - 55 U/L 05/24/2024 8:33 AM [facility] ALKALINE PHOSPHATASE S/P/B 47(L) 50 - 136 U/L 05/24/2024 8:33 AM [facility] ANION GAP 13.0(H) 2 - 10 MMOL/L 05/24/2024 8:33 AM [facility] BUN CREATININE RATIO 17.0 6 - 26 05/24/2024 8:33 AM [facility] A/G RATIO 1.4 1.0 - 2.0 RATIO 05/24/2024 8:33 AM [facility] GFR ESTIMATE >90 >90 ML/MIN/1.7 3 M2 05/24/2024 8:33 AM [facility] Comment: NOTE: eGFR is not calculated for patients <18 years of age or gender unknown. This is an estimated GFR calculation using the new CKD EPI creatinine equation without race and so does not require a correction factor for race. This estimated GFR should not be used for calculating drug doses. 05/24/2024 7:45 AM COMMUNITY CENTER WORKER Armida Marie MD LABORATORY Final Result [facility] [address] [place] [id number], * (ABNORMAL) CBC W/DIFF AUTOMATED (05/24/2024 7:45 AM COMMUNITY CENTER WORKER) WBC 7.50 4.5 - 13.0 x10'3/uL 05/24/2024 8:11 AM [facility] RBC 4.41 4.20 - 5.40 x10'6/uL 05/24/2024 8:11 AM [facility] HGB 13.5 12.0 - 16.0 G/DL 05/24/2024 8:11 AM [facility] HCT 39.7 38.0 - 48.0 % 05/24/2024 8:11 AM [facility] MCV 90.0 81.0 - 99.0 FL 05/24/2024 8:11 AM [facility] MCH 30.6 27.0 - 31.0 PG 05/24/2024 8:11 AM [facility] MCHC 34.0 32.0 - 36.0 G/DL 05/24/2024 8:11 AM [facility] RDW 13.2 11.5 - 14.5 % 05/24/2024 8:11 AM [facility] PLT 253 130 - 400 x10'3/uL 05/24/2024 8:11 AM [facility] MPV 10.9 9.3 - 12.2 FL 05/24/2024 8:11 AM [facility] DIFFERENTIAL TYPE AUTOMATED DIFFERENTIAL 05/24/2024 8:11 AM [facility] NEUTROPHILS % 67.5 % 05/24/2024 8:11 AM [facility] LYMPHOCYTES % 24.5 % 05/24/2024 8:11 AM [facility] MONOCYTES % 7.3 % 05/24/2024 8:11 AM [facility] EOSINOPHILS 0.0 % 05/24/2024 8:11 AM [facility] BASOPHILS 0.4 % 05/24/2024 8:11 AM [facility] IMMATURE GRANS % 0.3 % 05/25/19 8:11 AM [facility] ABS. NEUTROPHILS 5.06 1.80 - 8.00 x10'3/uL 05/24/2024 8:11 AM [facility] ABS. LYMPHOCYTES 1.84 1.20 - 5.20 x10'3/uL 05/24/2024 8:11 AM [facility] ABS. MONOCYTES 0.55 0.24 - 0.86 x10'3/uL 05/24/2024 8:11 AM COMMUNITY CENTER WORKER [facility] ABS. EOSINOPHILS 0.00(L) 0.04 - 0.36 x10'3/uL 05/24/2024 8:11 AM COMMUNITY CENTER WORKER [facility] ABS. BASOPHILS 0.03 0.01 - 0.08 x10'3/uL 05/24/2024 8:11 AM COMMUNITY CENTER WORKER [facility] ABS. IMMATURE GRANULOCYTES 0.02 0.00 - 0.49 x10'3/uL 05/24/2024 8:11 AM COMMUNITY CENTER WORKER [facility] 05/24/2024 7:45 AM COMMUNITY CENTER WORKER Armida Marie MD LABORATORY Final Result [facility] [address] [place] [address], [place] [phone] * LIPASE (05/24/2024 7:45 AM COMMUNITY CENTER WORKER) LIPASE 22 13 - 75 UNITS/L 05/24/2024 8:33 AM COMMUNITY CENTER WORKER [facility] 05/24/2024 7:45 AM COMMUNITY CENTER WORKER Armida Marie MD LABORATORY Final Result [facility] [address] [place] [address], [place] [phone] from Last 3 Months Insurance Care Teams [employer] Teacher Relationship Specialty Start Date End Date Chris Swartz MD [address] [place] [address] PCP - General PEDIATRICS 11/29/20
[2024-07-27 00:28] LABS: BEDSIDEPREGUCG Negative (Negative)
[2024-07-27 00:50] LABS: Add Urine Microscopic? YES; Appearance Urine Cloudy (Clear); Bacteria Urine Rare /hpf; Bilirubin Urine 1+ (Negative); Blood Urine Negative (Negative); Color Urine Dark Yellow (Yellow); Glucose Urine UA Negative (Negative); Ketones Urine 2+ mg/dL (Negative); Leukocyte Esterase Ur Trace LEU/UL (Negative); Mucus Urine Present /lpf; Need Manual Microscopic Reviewed; Nitrate Urine Negative (Negative); Protein Urine 1+ mg/dL (Negative); RBC Urine 0-2 /hpf (0-2); Specific Grav Ur 1.038 (1.001-1.035); Squamous Epithelial Cell Urine Few /hpf (Few); WBC Urine 0-5 /hpf (0-3); pH Urine 5.5 (5.0-9.0)
[2024-07-27 01:17] LABS: Basophils Percent Auto 0.3 % (0.2-1.2); Eosinophils Percent Auto 0.2 % (0-4.4); Hematocrit 43.2 % (37.0-47.0); Hemoglobin 14.7 g/dL (12.0-15.0); Immature Granulocyte Absolute 0.08 K/mm3 (0.00-0.031); Immature Granulocyte Percent A 0.6 % (0-0.5); Lymphocytes Absolute Auto 1.72 K/mm3 (0.9-3.2); Lymphocytes Percent Auto 13.9 % (18.3-44.2); Mean Corpuscular Hemoglobin 30.6 pg (26-34); Mean Platelet Volume 10.7 fl (7.4-10.4); Monocytes Absolute Auto 0.9 K/mm3 (0.1-0.6); Monocytes Percent Auto 7.1 % (2.6-8.5); Neutrophils Absolute Auto 9.6 K/mm3 (1.3-6.7); Neutrophils Percent Auto 77.9 % (45.5-73.1); Platelet Count Result 309 k/mm3 (150-375); Red Cell Distribution Width 12.9 % (11.5-14.5); White Blood Count 12.3 K/mm3 (4.5-10.0)
--- OUTSIDE RECORDS SUMMARY | 2024-07-27 01:23 | XMS_ITS | Clinical Summary ---
Author Organization [facility] Address [address] [place] [address] Care Team Providers Care Warehouse Record Clerk Name Role Phone Chris Swartz MD Primary Care Provider [phone] Allergies No known active allergies Medications sertraline [...] Department Care Team Description 05/24/2024 7:18 AM VIDEOGRAPHER - 05/24/2024 11:06 AM [facility] Emergency [facility] [place] [address] Armida Marie MD Vomiting; Anxiety Discharge Disposition: [...] Sex Assigned at Female 05/24/2024 7:19 AM VIDEOGRAPHER Legal Sex Female 9:31 AM VIDEOGRAPHER Gender Identity Not on file Sexual Orientation Not on file Last Filed Vital Signs Vital Sign Reading Time Taken Comments Blood Pressure 144/92 05/24/2024 7:08 AM VIDEOGRAPHER Pulse 54 05/24/2024 7:08 AM VIDEOGRAPHER Temperature 37 C (98.6 F) 05/24/2024 7:08 AM VIDEOGRAPHER Respiratory Rate 17 05/24/2024 7:08 AM VIDEOGRAPHER Oxygen Saturation 98% 05/24/2024 7:08 AM VIDEOGRAPHER Inhaled Oxygen Concentration - - Weight 53.3 kg (117 lb 8.1 oz) 05/24/2024 7:08 A M VIDEOGRAPHER Height 156 cm (5' 1.42 ) 05/24/2024 7:08 AM VIDEOGRAPHER Body Mass Index 21.9 05/24/2024 7:08 AM VIDEOGRAPHER Plan of Treatment Health Maintenance Due Date [...] Comments TEST URINE STAT 05/24/2024 9:07 AM VIDEOGRAPHER HC URINALYSIS AUTO W/O MICRO STAT 05/24/2024 9:07 AM VIDEOGRAPHER LIPASE STAT 05/24/2024 7:45 AM VIDEOGRAPHER COMPREHENSIVE METABOLIC PANEL STAT 05/24/2024 7:45 AM VIDEOGRAPHER CBC W/DIFF AUTOMATED STAT 05/24/2024 7:45 AM VIDEOGRAPHER from Last 3 Months Results * (ABNORMAL) URINALYSIS (05/24/2024 9:07 AM VIDEOGRAPHER) SPECIMEN TYPE URINE CLEAN CATCH 05/24/2024 9:32 AM VIDEOGRAPHER [facility] COLOR (U) LIGHT YELLOW 05/24/2024 9:48 AM VIDEOGRAPHER [facility] TRANSPARENCY CLEAR 05/24/2024 9:48 AM VIDEOGRAPHER [facility] SPECIFIC GRAVITY (U) 1.028 1.001 - 1.030 05/24/2024 9:48 AM VIDEOGRAPHER [facility] U PH 5.5 5.0 - 9.0 05/24/2024 9:48 AM [facility] LEUKOCYTES (U) NEGATIVE NEGATIVE 05/24/2024 9:48 AM VIDEOGRAPHER [facility] NITRITES NEGATIVE NEGATIVE 05/24/2024 9:48 AM [facility] PROTEIN RANDOM (U) 20 <30 MG/DL 05/24/2024 9:48 AM [facility] GLUCOSE (U) NORMAL NORMAL MG/DL 05/24/2024 9:48 AM [facility] KETONES MG/DL (U) 150(A) NEGATIVE MG/DL 05/24/2024 9:48 AM [facility] UROBILINOGEN NORMAL NORMAL MG/DL 05/24/2024 9:48 AM [facility] BILIRUBIN (U) NEGATIVE NEGATIVE MG/DL 05/24/2024 9:48 AM [facility] BLOOD (U) TRACE(A) NEGATIVE 05/24/2024 9:48 AM [facility] MUCUS FEW /LPF 05/24/2024 9:48 AM VIDEOGRAPHER [facility] WBC/HPF 2 <6 /HPF 05/24/2024 9:48 AM VIDEOGRAPHER [facility] RBC/HPF 3 <6 /HPF 05/24/2024 9:48 AM VIDEOGRAPHER [facility] SQUAMOUS EPITHELIALS RARE /HPF 05/24/2024 9:48 AM VIDEOGRAPHER [facility] URINE SPECIMEN OBTAINED BY CLEAN CATCH PROCEDURE / Unknown 05/24/2024 9:07 AM VIDEOGRAPHER Armida Marie MD URINE ORDERABLES Final Result Performing Organization Address City/[facility]/ZIP Co de Phone Number [facility] [address] [place] [address], [place] [phone] * TEST URINE (05/24/2024 9:07 AM VIDEOGRAPHER) Pathologist [facility] URINE HCG TEST NEGATIVE 05/24/2024 9:58 AM VIDEOGRAPHER [facility] Comment: VERY DILUTE URINE SPECIMENS MAY NOT CONTAIN MANAGER HELPDESK LEVELS OF HCG. IF IS STILL SUSPECTED, A SERUM HCG TEST IS RECOMMENDED. URINE SPECIMEN FROM [facility] / Unknown 05/24/2024 9:07 AM VIDEOGRAPHER Armida Marie MD URINE ORDERABLES Final Result [facility] [address] [place] [address], [place] [phone] * (ABNORMAL) COMPREHENSIVE METABOLIC PANEL (05/24/2024 7:45 AM VIDEOGRAPHER) Pathologist [facility] GLUCOSE 97 70 - 99 MG/DL 05/24/2024 8:33 AM VIDEOGRAPHER [facility] BUN 11 7 - 18 MG/DL 05/24/2024 8:33 AM VIDEOGRAPHER [facility] CREATININE S/P/B 0.65 0.55 - 1.02 MG/DL 05/24/2024 8:33 AM [facility] SODIUM S/P/B 136 136 - 145 MMOL/L 05/24/2024 8:33 AM [facility] POTASSIUM S/P/B 3.3(L) 3.5 - 5.1 MMOL/L 05/24/2024 8:33 AM [facility] CHLORIDE S/P/B 104 97 - 115 MMOL/L 05/24/2024 8:33 AM [facility] CO2 19.0(L) 21 - 32 MMOL/L 05/24/2024 8:33 AM [facility] CALCIUM S/P/B 9.5 8.5 - 10.1 MG/DL 05/24/2024 8:33 AM [facility] BILIRUBIN TOTAL S/P/B 1.2 0.2 - 1.2 MG/DL 05/24/2024 8:33 AM [facility] Comment: THIS ASSAY IS NOT RECOMMENDED FOR PATIENTS UNDERGOING TREATMENT WITH ELTROMBOPAG DUE TO THE POTENTIAL FOR FALSELY ELEVATED RESULTS. TOTAL PROTEIN S/P/B 7.3 6.4 - 8.2 G/DL 05/24/2024 8:33 AM [facility] ALBUMIN S/P/B 4.2 3.4 - 5.0 G/DL 05/24/2024 8:33 AM [facility] AST 26 15 - 37 U/L 05/24/2024 8:33 AM [facility] ALT 37 14 - 55 U/L 05/24/2024 8:33 AM [facility] ALKALINE PHOSPHATASE S/P/B 47(L) 50 - 136 U/L 05/24/2024 8:33 AM [facility] ANION GAP 13.0(H) 2 - 10 MMOL/L 05/24/2024 8:33 AM [facility] BUN CREATININE RATIO 17.0 6 - 26 05/24/2024 8:33 AM [facility] A/G RATIO 1.4 1.0 - 2.0 RATIO 05/24/2024 8:33 AM [facility] GFR ESTIMATE >90 >90 ML/MIN/1.7 3 M2 05/24/2024 8:33 AM [facility] Comment: NOTE: eGFR is not calculated for patients <18 years of age or gender unknown. This is an estimated GFR calculation using the new CKD EPI creatinine equation without race and so does not require a correction factor for race. This estimated GFR should not be used for calculating drug doses. 05/24/2024 7:45 AM VIDEOGRAPHER Armida Marie MD LABORATORY Final Result [facility] [address] [place] [id number], * (ABNORMAL) CBC W/DIFF AUTOMATED (05/24/2024 7:45 AM VIDEOGRAPHER) WBC 7.50 4.5 - 13.0 x10'3/uL 05/24/2024 8:11 AM [facility] RBC 4.41 4.20 - 5.40 x10'6/uL 05/24/2024 8:11 AM [facility] HGB 13.5 12.0 - 16.0 G/DL 05/24/2024 8:11 AM [facility] HCT 39.7 38.0 - 48.0 % 05/24/2024 8:11 AM [facility] MCV 90.0 81.0 - 99.0 FL 05/24/2024 8:11 AM [facility] MCH 30.6 27.0 - 31.0 PG 05/24/2024 8:11 AM [facility] MCHC 34.0 32.0 - 36.0 G/DL 05/24/2024 8:11 AM [facility] RDW 13.2 11.5 - 14.5 % 05/24/2024 8:11 AM [facility] PLT 253 130 - 400 x10'3/uL 05/24/2024 8:11 AM [facility] MPV 10.9 9.3 - 12.2 FL 05/24/2024 8:11 AM [facility] DIFFERENTIAL TYPE AUTOMATED DIFFERENTIAL 05/24/2024 8:11 AM [facility] NEUTROPHILS % 67.5 % 05/24/2024 8:11 AM [facility] LYMPHOCYTES % 24.5 % 05/24/2024 8:11 AM [facility] MONOCYTES % 7.3 % 05/24/2024 8:11 AM [facility] EOSINOPHILS 0.0 % 05/24/2024 8:11 AM [facility] BASOPHILS 0.4 % 05/24/2024 8:11 AM [facility] IMMATURE GRANS % 0.3 % 05/25/19 8:11 AM [facility] ABS. NEUTROPHILS 5.06 1.80 - 8.00 x10'3/uL 05/24/2024 8:11 AM [facility] ABS. LYMPHOCYTES 1.84 1.20 - 5.20 x10'3/uL 05/24/2024 8:11 AM [facility] ABS. MONOCYTES 0.55 0.24 - 0.86 x10'3/uL 05/24/2024 8:11 AM VIDEOGRAPHER [facility] ABS. EOSINOPHILS 0.00(L) 0.04 - 0.36 x10'3/uL 05/24/2024 8:11 AM VIDEOGRAPHER [facility] ABS. BASOPHILS 0.03 0.01 - 0.08 x10'3/uL 05/24/2024 8:11 AM VIDEOGRAPHER [facility] ABS. IMMATURE GRANULOCYTES 0.02 0.00 - 0.49 x10'3/uL 05/24/2024 8:11 AM VIDEOGRAPHER [facility] 05/24/2024 7:45 AM VIDEOGRAPHER Armida Marie MD LABORATORY Final Result [facility] [address] [place] [address], [place] [phone] * LIPASE (05/24/2024 7:45 AM VIDEOGRAPHER) LIPASE 22 13 - 75 UNITS/L 05/24/2024 8:33 AM VIDEOGRAPHER [facility] 05/24/2024 7:45 AM VIDEOGRAPHER Armida Marie MD LABORATORY Final Result [facility] [address] [place] [address], [place] [phone] from Last 3 Months Insurance Care Teams Warehouse Record Clerk Relationship Specialty Start Date End Date Chris Swartz MD [address] [place] [address] PCP - General PEDIATRICS 11/29/20
[2024-07-27 01:33] LABS: Alanine Aminotransferase 25 U/L (6-35); Alkaline Phosphatase 59 U/L (38-126); Anion Gap 16 mmol/L (4-12); Aspartate Amino Transferase 27 U/L (14-36); Bilirubin,Total 1.4 mg/dL (0.2-1.3); Blood Urea Nitrogen 17 mg/dL (7-17); Calcium 9.9 mg/dL (8.4-10.2); Carbon Dioxide 22 mmol/L (22-30); Chloride 96 mmol/L (98-107); Estimated CRCL calculation 70 ml/min; Estimated Glomerular Filt Rate > 60; Glucose 102 mg/dL (65-110); Lipase 42 U/L (23-300); Sodium 134 mmol/L (137-145)
[2024-07-27] MEDS: LACTATED RINGERS 1,000 ML 999 ML IV CONT (01:52)
[2024-07-27] MEDS: FAMOTIDINE 20 MG/2 ML VIAL IV PUSH (01:53)
[2024-07-27] MEDS: ONDANSETRON INJ 4 MG/2 ML VIAL IV PUSH (01:53)
--- NOTE | 2024-07-27 01:58 | ED.NAVMDI ---
HPI - Nausea/Vomiting/Diarrhea General Chief complaint: Nausea/Vomiting/Diarrhea Stated complaint: nausea, vomiting x4 days Time Seen by Provider: 07/27/24 01:15 History of Present Illness HPI Narrative: Patient states for last few days she has been having nausea vomiting, she has been having this on and off now for a while which she believes is from marijuana use and from hormones from her periods. No significant abdominal pain, just cramping from throwing up Related Data Home Medications ?Medication ?Instructions ?Recorded ?Confirmed ?Last Taken ?Type sertraline 50 mg tablet (Zoloft) 75 mg PO DAILY 02/21/22 02/21/22 Unknown History Allergies Allergy/AdvReac Type Severity Reaction Status Date / Time No Known Allergies Allergy Verified 06/25/24 08:52 Review of Systems Review of Systems: All systems reviewed & are unremarkable except as noted in HPI and below PMFSH Past Medical History Medical History (Updated 07/27/24 @ 03:24 by Gillian Zhao MD) Cannabinoid hyperemesis syndrome Anxiety Social History Social History (Updated 06/22/24 @ 15:12 by Maria Victoria Mazariegos PA-C) Smoking status: Never smoker Alcohol intake: never Substance use: current Substance use type: marijuana Exam Narrative: EXAMINATION OF ORGAN SYSTEMS/BODY AREAS: Constitutional: Vital signs per nursing GENERAL:[No acute distress, non-toxic appearing.] HEAD: Normal with no signs of head trauma. EYES: EOMI, conjunctiva normal ENT: Hearing grossly intact LUNGS: Nonlabored breathing. HEART: [Regular rate and rhythm] ABD: [Soft], [nontender to palpation] EXT: Normal range of motion SKIN: [No rashes or lesions.] NEURO: [Alert and oriented x 3. No gross focal sensory or strength deficits.] PSYCH: Normal affect Course Vital Signs Vital signs: Vital Signs Temperature 97.6 F 07/26/24 23:19 Pulse Rate 66 07/26/24 23:19 Respiratory Rate 18 07/26/24 23:19 Blood Pressure 137/102 H 07/26/24 23:19 Pulse Oximetry 99 07/26/24 23:19 Oxygen Delivery Room Air 07/26/24 23:19 Temperature 97.6 F 07/26/24 23:19 Pulse Rate 66 07/26/24 23:19 Respiratory Rate 18 07/26/24 23:19 Blood Pressure 137/102 H 07/26/24 23:19 Pulse Oximetry 99 07/26/24 23:19 Oxygen Delivery Room Air 07/26/24 23:19 MDM - Nausea/Vomiting/Diarrhea MDM Narrative Medical decision making narrative: Patient states for last few days she has been having nausea vomiting, she has been having this on and off now for a while which she believes is from marijuana use and from hormones from her periods. Abdomen soft nontender he is well-appearing on exam, she feels much better after fluids and nausea medicine and agreeable to outpatient management, counseled to stop using marijuana and follow-up with her OB about potentially hormonal methods to control her period. Potassium 3.0 and is repleted here. I have let her know she come back for any further issues. Lab Data 07/27/24 01:02 07/27/24 01:02 Labs: Lab Results 07/27/24 07/27/24 07/27/24 Range/Units 00:24 00:26 01:02 WBC 12.3 H (4.5-10.0) K/mm3 RBC 4.80 (4.2-5.4) M/mm3 Hgb 14.7 (12.0-15.0) g/dL Hct 43.2 (37.0-47.0) % MCV 90.0 (80-100) fl MCH 30.6 (26-34) pg MCHC 34.0 (32-36) g/dl RDW 12.9 (11.5-14.5) % Plt Count 309 (150-375) k/mm3 MPV 10.7 H (7.4-10.4) fl Immature Gran % (Auto) 0.6 H (0-0.5) % Neut % (Auto) 77.9 H (45.5-73.1) % Lymph % (Auto) 13.9 L (18.3-44.2) % [place] % (Auto) 7.1 (2.6-8.5) % Eos % (Auto) 0.2 (0-4.4) % Baso % (Auto) 0.3 (0.2-1.2) % Lymph # (Auto) 1.72 (0.9-3.2) K/mm3 [place] # (Auto) 0.9 H (0.1-0.6) K/mm3 Eos # (Auto) 0.0 (0-0.3) K/mm3 Baso # (Auto) 0.0 (0.0-0.1) K/mm3 Abs Immat Gran (auto) 0.08 H (0.00-0.031) K/mm3 Absolute Neuts (auto) 9.6 H (1.3-6.7) K/mm3 Absolute Nucleated RBC 0.000 (0.0-0.012) K/mm3 Nucleated RBC % 0.0 (0.0-0.2) % Sodium 134 L (137-145) mmol/L Potassium 3.0 L (3.4-5.0) mmol/L Chloride 96 L (98-107) mmol/L Carbon Dioxide 22 (22-30) mmol/L Anion Gap 16 H (4-12) mmol/L BUN 17 (7-17) mg/dL Creatinine 0.84 (0.7-1.0) mg/dL Estim Creat Clear Calc 70 ml/min Estimated GFR > 60 (59 - ) Glucose 102 (65-110) mg/dL Calcium 9.9 (8.4-10.2) mg/dL Total Bilirubin 1.4 H (0.2-1.3) mg/dL AST 27 (14-36) U/L ALT 25 (6-35) U/L Alkaline Phosphatase 59 (38-126) U/L Total Protein 8.0 (6.3-8.2) g/dL Albumin 5.0 (3.5-5.1) g/dL Lipase 42 (23-300) U/L Urine Color Dark yellow (Yellow) Urine Appearance Cloudy H (Clear) Urine pH 5.5 (5.0-9.0) Ur Specific [place] 1.038 H (1.001-1.035) Urine Protein 1+ H (Negative) mg/dL Urine Glucose (UA) Negative (Negative) mg/dL Urine Ketones 2+ H (Negative) mg/dL Ur Blood (Man) Negative (Negative) Urine Nitrate Negative (Negative) Urine Bilirubin 1+ H (Negative) Urine Urobilinogen 1.0 (<2.0) mg/dL Add Ur Microanalysis Reviewed Leukocyte Esterase Rfl Trace H (Negative) BRYAN/UL Urine RBC 0-2 (0-2) /hpf Urine WBC 0-5 (0-3) /hpf Ur Squamous Epith Cells Few (Few) /hpf Urine Bacteria Rare /hpf Urine Casts 3-5 Urine Mucus Present /lpf POC Urine HCG, Qual Negative (Negative) Discharge Plan Discharge Clinical Impression: Nausea & vomiting, Hypokalemia Patient Disposition: Home Condition: Stable Instructions: Acute Nausea and Vomiting (ED) Additional Instructions: Please follow up with your doctor; you can always return for any further issues. Please stop smoking marijuana. Consider talking 2 year OBGYN for ways to help control your period symptoms. Patient Language: Sinhala Prescriptions: New ondansetron 4 mg tablet,disintegrating 4 mg PO Q8H PRN (Reason: nausea and vomiting) Qty: 10 0RF No Action sertraline [Zoloft] 50 mg Tablet 75 mg PO DAILY ondansetron 4 mg tablet,disintegrating 4 mg PO Q4H 0 Days Qty: 10 0RF Rx Instructions: 1st dose 1-2 hr before radiation ondansetron 4 mg tablet,disintegrating 4 mg PO Q8H PRN (Reason: nausea and vomiting) Qty: 15 0RF cephalexin 500 mg capsule 500 mg PO Q8H 7 Days Qty: 21 0RF ondansetron 4 mg tablet,disintegrating 4 mg PO Q8H PRN (Reason: nausea and vomiting) Qty: 14 0RF Follow-up/Referrals: PHYSICIAN,[employer] ARCHITECT [Primary Care Provider] -
[2024-07-27] MEDS: POTASSIUM CHLORIDE 20 MEQ ER TABLET 40 MEQ PO (02:15)
[2024-07-27] MEDS: KCL 20 MEQ/SW 100 ML 100 ML 50 MEQ IVPB (02:19)
[2024-07-27 03:32] VITALS: BP 144/62; PULSE 68; RESP 14; O2SAT 100
== END 2024-07-27 04:22 | disposition home or self-care (01) ==
PROVIDERS: Emergency Provider Emergency Medicine
DX: R11.2 Nausea with vomiting, unspecified (principal); E87.6 Hypokalemia; F12.90 Cannabis use, unspecified, uncomplicated; F41.9 Anxiety disorder, unspecified
CPT/HCPCS: 36415; 80053; 81001; 81025; 83690; 85025; 96365; 96375; 99284; A9270; J2405; J3480; J7120

== ENCOUNTER 2024-08-29 08:25 | Emergency (ER) | payer OTHER, SELFPAY ==
[2024-08-29 08:33] VITALS: BP 156/95; PULSE 61; RESP 20; TEMP 36.6; O2SAT 100
[2024-08-29 08:46] LABS: Basophils Percent Auto 0.3 % (0.2-1.2); Eosinophils Percent Auto 0.1 % (0-4.4); Hemoglobin 13.6 g/dL (12.0-15.0); Immature Granulocyte Absolute 0.05 K/mm3 (0.00-0.031); Immature Granulocyte Percent A 0.4 % (0-0.5); Lymphocytes Absolute Auto 2.34 K/mm3 (0.9-3.2); Lymphocytes Percent Auto 18.3 % (18.3-44.2); Mean Corpuscular Hemoglobin 31.1 pg (26-34); Mean Corpuscular Volume 91.3 fl (80-100); Mean Platelet Volume 10.5 fl (7.4-10.4); Monocytes Absolute Auto 1.2 K/mm3 (0.1-0.6); Monocytes Percent Auto 9.1 % (2.6-8.5); Neutrophils Absolute Auto 9.2 K/mm3 (1.3-6.7); Neutrophils Percent Auto 71.8 % (45.5-73.1); Platelet Count Result 343 k/mm3 (150-375); Red Blood Count 4.38 M/mm3 (4.2-5.4); Red Cell Distribution Width 12.8 % (11.5-14.5); White Blood Count 12.8 K/mm3 (4.5-10.0)
[2024-08-29] MEDS: SODIUM CHLORIDE 0.9% IV 1,000 ML 999 ML IV CONT (08:46)
[2024-08-29] MEDS: ONDANSETRON INJ 4 MG/2 ML VIAL IV PUSH (08:47)
[2024-08-29 08:54] LABS: BEDSIDEPREGUCG Negative (Negative)
[2024-08-29 09:03] LABS: Alanine Aminotransferase 29 U/L (6-35); Albumin Level 5.1 g/dL (3.5-5.1); Alkaline Phosphatase 56 U/L (38-126); Anion Gap 14 mmol/L (4-12); Aspartate Amino Transferase 43 U/L (14-36); Bilirubin,Total 1.3 mg/dL (0.2-1.3); Blood Urea Nitrogen 14 mg/dL (7-17); Calcium 10.6 mg/dL (8.4-10.2); Carbon Dioxide 22 mmol/L (22-30); Chloride 100 mmol/L (98-107); Estimated CRCL calculation 79 ml/min; Estimated Glomerular Filt Rate > 60; Glucose 121 mg/dL (65-110); Lipase 35 U/L (23-300); Potassium 3.7 mmol/L (3.4-5.0); Sodium 136 mmol/L (137-145); Total Protein 8.1 g/dL (6.3-8.2)
[2024-08-29 09:17] LABS: Add Urine Microscopic? YES; Appearance Urine Cloudy (Clear); Bacteria Urine Rare /hpf; Bilirubin Urine Negative (Negative); Blood Urine Negative (Negative); Color Urine Yellow (Yellow); Glucose Urine UA Negative (Negative); Ketones Urine 4+ mg/dL (Negative); Leukocyte Esterase Ur Negative LEU/UL (Negative); Mucus Urine Present /lpf; Need Manual Microscopic Reviewed; Nitrate Urine Negative (Negative); Protein Urine 1+ mg/dL (Negative); Squamous Epithelial Cell Urine Moderate /hpf (Few); WBC Urine 0-5 /hpf (0-3); pH Urine 5.5 (5.0-9.0)
--- NOTE | 2024-08-29 09:38 | PC.NURSE ---
Pt requesting something to drink. made aware. Dr. Smith states pt can have water for PO challenge
[2024-08-29 10:48] VITALS: BP 114/58; PULSE 69; RESP 18; O2SAT 98
--- NOTE | 2024-08-29 12:40 | ED_ITS ---
HPI - General Adult General Chief complaint: Nausea/Vomiting/Diarrhea Stated complaint: N/V/D x1 day Time Seen by Provider: 08/29/24 08:31 History of Present Illness HPI narrative: Patient is a 18-year-old female who presents ER with nausea vomiting. Ongoing over last day. Multiple episodes of vomiting but only 1 episode of diarrhea. No fevers or chills or sweats. She has had similar symptoms in the past. Symptoms typically occur when she is on her menstrual cycle which is occurring now. No fevers or chills. No urinary symptoms. Related Data Home Medications ?Medication ?Instructions ?Recorded ?Confirmed ?Last Taken ?Type sertraline 50 mg tablet (Zoloft) 75 mg PO DAILY 02/21/22 02/21/22 Unknown History Allergies Allergy/AdvReac Type Severity Reaction Status Date / Time No Known Allergies Allergy Verified 08/29/24 08:27 Review of Systems 2 Review of Systems: All systems reviewed & are unremarkable except as noted in HPI and below Constitutional: Constitutional: Reports no additional constitutional complaints Cardiovascular: Cardiovascular: Reports no additional cardiovascular complaints Respiratory: Respiratory: Reports no additional respiratory complaints Gastrointestinal: Gastrointestinal: Reports no additional gastrointestinal complaints Genitourinary: Genitourinary: Reports no additional female genitourinary complaints [facility] Past Medical History Medical History (Updated 08/29/24 @ 12:40 by Sean Smith MD) Cannabinoid hyperemesis syndrome Anxiety Social History Social History (Updated 06/22/24 @ 15:12 by Maria Victoria Mazariegos PA-C) Smoking status: Never smoker Alcohol intake: never Substance use: current Substance use type: marijuana Exam 2 Narrative: GENERAL: Fatigue-appearing, well-nourished, and shivering. HEAD: Normocephalic, atraumatic. ENT: Mucous membranes moist. NECK: Supple. CHEST: Clear to auscultation. No respiratory distress. HEART: Regular rate and rhythm. Normal peripheral pulses. ABDOMEN: Soft, nontender, nondistended. EXTREMITIES: Normal range of motion. No edema. SKIN: Warm, dry, no rash. NEURO: Alert and oriented x3. PSYCH: Normal mood and affect. Course Course Emergency Course: Patient resting comfortably after fluids and antiemetics. Labs unremarkable with exception mild leukocytosis and very mild elevation calcium. Appropriate for discharge home. Vital Signs Vital signs: Vital Signs Temperature 97.9 F 08/29/24 08:33 Pulse Rate 61 08/29/24 08:33 Respiratory Rate 20 08/29/24 08:33 Blood Pressure 156/95 H 08/29/24 08:33 Pulse Oximetry 100 08/29/24 08:33 Temperature 97.9 F 08/29/24 08:33 Pulse Rate 69 08/29/24 10:48 Respiratory Rate 18 08/29/24 10:48 Blood Pressure 114/58 L 08/29/24 10:48 Pulse Oximetry 98 08/29/24 10:48 Medical Decision Making Vital Signs Vital Signs: Vital Signs Temperature 97.9 F 08/29/24 08:33 Pulse Rate 61 08/29/24 08:33 Respiratory Rate 20 08/29/24 08:33 Blood Pressure 156/95 H 08/29/24 08:33 Pulse Oximetry 100 08/29/24 08:33 Temperature 97.9 F 08/29/24 08:33 Pulse Rate 69 08/29/24 10:48 Respiratory Rate 18 08/29/24 10:48 Blood Pressure 114/58 L 08/29/24 10:48 Pulse Oximetry 98 08/29/24 10:48 Lab Data 08/29/24 08:37 08/29/24 08:37 Labs: Lab Results 08/29/24 08/29/24 08/29/24 Range/Units 08:37 08:48 08:51 WBC 12.8 H (4.5-10.0) K/mm3 RBC 4.38 (4.2-5.4) M/mm3 Hgb 13.6 (12.0-15.0) g/dL Hct 40.0 (37.0-47.0) % MCV 91.3 (80-100) fl MCH 31.1 (26-34) pg MCHC 34.0 (32-36) g/dl RDW 12.8 (11.5-14.5) % Plt Count 343 (150-375) k/mm3 MPV 10.5 H (7.4-10.4) fl Immature Gran % (Auto) 0.4 (0-0.5) % Neut % (Auto) 71.8 (45.5-73.1) % Lymph % (Auto) 18.3 (18.3-44.2) % [place] % (Auto) 9.1 H (2.6-8.5) % Eos % (Auto) 0.1 (0-4.4) % Baso % (Auto) 0.3 (0.2-1.2) % Lymph # (Auto) 2.34 (0.9-3.2) K/mm3 [place] # (Auto) 1.2 H (0.1-0.6) K/mm3 Eos # (Auto) 0.0 (0-0.3) K/mm3 Baso # (Auto) 0.0 (0.0-0.1) K/mm3 Abs Immat Gran (auto) 0.05 H (0.00-0.031) K/mm3 Absolute Neuts (auto) 9.2 H (1.3-6.7) K/mm3 Absolute Nucleated RBC 0.000 (0.0-0.012) K/mm3 Nucleated RBC % 0.0 (0.0-0.2) % Sodium 136 L (137-145) mmol/L Potassium 3.7 (3.4-5.0) mmol/L Chloride 100 (98-107) mmol/L Carbon Dioxide 22 (22-30) mmol/L Anion Gap 14 H (4-12) mmol/L BUN 14 (7-17) mg/dL Creatinine 0.74 (0.7-1.0) mg/dL Estim Creat Clear Calc 79 ml/min Estimated GFR > 60 (59 - ) Glucose 121 H (65-110) mg/dL Calcium 10.6 H (8.4-10.2) mg/dL Total Bilirubin 1.3 (0.2-1.3) mg/dL AST 43 H (14-36) U/L ALT 29 (6-35) U/L Alkaline Phosphatase 56 (38-126) U/L Total Protein 8.1 (6.3-8.2) g/dL Albumin 5.1 (3.5-5.1) g/dL Lipase 35 (23-300) U/L Urine Color Yellow (Yellow) Urine Appearance Cloudy H (Clear) Urine pH 5.5 (5.0-9.0) Ur Specific [place] 1.040 H (1.001-1.035) Urine Protein 1+ H (Negative) mg/dL Urine Glucose (UA) Negative (Negative) mg/dL Urine Ketones 4+ H (Negative) mg/dL Ur Blood (Man) Negative (Negative) Urine Nitrate Negative (Negative) Urine Bilirubin Negative (Negative) Urine Urobilinogen 1.0 (<2.0) mg/dL Add Ur Microanalysis Reviewed Leukocyte Esterase Rfl Negative (Negative) BRYAN/UL Urine RBC 3-5 H (0-2) /hpf Urine WBC 0-5 (0-3) /hpf Ur Squamous Epith Cells Moderate (Few) /hpf Urine Bacteria Rare /hpf Urine Casts 3-5 Urine Mucus Present /lpf POC Urine HCG, Qual Negative (Negative) Discharge Plan Discharge Clinical Impression: Nausea & vomiting Patient Disposition: Home Condition: Stable Instructions: Dehydration (ED), Acute Nausea and Vomiting (ED) Additional Instructions: Return to the emergency department if you develop severe abdominal pain, severe nausea and vomiting to the point where you are unable to keep down fluids, if you develop chest pain or difficulty breathing, blood in your stool, dizziness or fainting, or if you develop any other new or concerning symptoms as these could be signs of more serious medical illness. Try to stay well hydrated. Patient Language: Ukrainian Prescriptions: New promethazine 25 mg tablet 25 mg PO Q6H PRN (Reason: nausea and vomiting) Qty: 12 0RF No Action sertraline [Zoloft] 50 mg Tablet 75 mg PO DAILY ondansetron 4 mg tablet,disintegrating 4 mg PO Q4H 0 Days Qty: 10 0RF Rx Instructions: 1st dose 1-2 hr before radiation ondansetron 4 mg tablet,disintegrating 4 mg PO Q8H PRN (Reason: nausea and vomiting) Qty: 15 0RF ondansetron 4 mg tablet,disintegrating 4 mg PO Q8H PRN (Reason: nausea and vomiting) Qty: 10 0RF cephalexin 500 mg capsule 500 mg PO Q8H 7 Days Qty: 21 0RF ondansetron 4 mg tablet,disintegrating 4 mg PO Q8H PRN (Reason: nausea and vomiting) Qty: 14 0RF Follow-up/Referrals: Mark Oliveros MD [Physician] - 1 Week PHYSICIAN,[employer] ELECTRIC TRAIN REPAIRER [Primary Care Provider] -
== END 2024-08-29 13:14 | disposition home or self-care (01) ==
PROVIDERS: Emergency Provider Emergency Medicine
DX: R11.2 Nausea with vomiting, unspecified (principal); F41.9 Anxiety disorder, unspecified
CPT/HCPCS: 36415; 80053; 81001; 81025; 83690; 85025; 96361; 96374; 99284; J2405; J7030

== ENCOUNTER 2024-08-30 05:51 | Emergency (ER) | payer OTHER, SELFPAY ==
[2024-08-30 05:57] VITALS: BP 140/89; PULSE 62; RESP 16; TEMP 36.7; O2SAT 98
[2024-08-30 06:18] LABS: Basophils Percent Auto 0.3 % (0.2-1.2); Hematocrit 38.4 % (37.0-47.0); Hemoglobin 13.1 g/dL (12.0-15.0); Immature Granulocyte Absolute 0.02 K/mm3 (0.00-0.031); Immature Granulocyte Percent A 0.2 % (0-0.5); Lymphocytes Absolute Auto 1.47 K/mm3 (0.9-3.2); Lymphocytes Percent Auto 16.4 % (18.3-44.2); Mean Corpuscular HGB Conc 34.1 g/dl (32-36); Mean Corpuscular Hemoglobin 31.2 pg (26-34); Mean Corpuscular Volume 91.4 fl (80-100); Mean Platelet Volume 10.7 fl (7.4-10.4); Monocytes Absolute Auto 0.5 K/mm3 (0.1-0.6); Monocytes Percent Auto 5.8 % (2.6-8.5); Neutrophils Absolute Auto 6.9 K/mm3 (1.3-6.7); Neutrophils Percent Auto 77.3 % (45.5-73.1); Platelet Count Result 330 k/mm3 (150-375); Red Cell Distribution Width 12.8 % (11.5-14.5)
[2024-08-30] MEDS: SODIUM CHLORIDE 0.9% IV 1,000 ML 999 ML IV CONT ×2 (06:18→07:58)
--- NOTE | 2024-08-30 06:21 | PC.NURSE ---
patient brings personal cup of liquid. pt educated about risks of drinking fluids while nauseated. pt continues to drink water at bedside.
--- NOTE | 2024-08-30 06:30 | ED_ITS ---
HPI - General Adult General Chief complaint: Nausea/Vomiting/Diarrhea Stated complaint: vomiting 0700 friday Time Seen by Provider: 08/30/24 06:25 History of Present Illness HPI narrative: Patient is a 18-year-old female who presents to the emergency department this evening complaining of nausea/vomiting and diarrhea since Friday. Patient states that is mainly nausea and vomiting, states that she has had a few episodes of diarrhea which have since then resolved. Denies any chance of . Denies any abdominal pain, denies any urinary symptoms including dysuria or hematuria. Denies any new sick contacts at home, a recent illness, fevers or chills. There are no additional modifying, alleviating, or precipitating factors at this time. Related Data Home Medications ?Medication ?Instructions ?Recorded ?Confirmed ?Last Taken ?Type sertraline 50 mg tablet (Zoloft) 75 mg PO DAILY 02/21/22 02/21/22 Unknown History Allergies Allergy/AdvReac Type Severity Reaction Status Date / Time No Known Allergies Allergy Verified 08/29/24 08:27 Review of Systems 2 Review of Systems: All systems are reviewed and are negative unless stated otherwise in the HPI. [facility] Past Medical History Medical History Cannabinoid hyperemesis syndrome Anxiety Social History Social History Smoking status: Never smoker Alcohol intake: never Substance use: current Substance use type: marijuana Exam 2 Narrative: General: Alert, awake, afebrile, in no acute distress. HEENT: PERRL, no rhinorrhea, no post nasal drip, oropharynx clear. Neck: Trachea midline, no JVD, no lymphadenopathy. Cardiovascular: Regular rate and rhythm, no murmurs, rubs or gallops, no peripheral edema. Respiratory: Clear to auscultation bilaterally, no tachypnea, no wheezing, no rhonchi, no rubs, no respiratory distress. Abdomen: Soft, nontender, nondistended, no rebound, no guarding, no peritoneal signs. Musculoskeletal: No joint swelling or deformity, normal muscle tone. Skin: No rashes or petechia, no signs of infection. Psychiatric: Alert and oriented, normal behavior and judgment for situation. Neurological: Alert and oriented to person, place, and time. Follows all commands. No focal deficits, speech is clear and fluent. Course Vital Signs Vital signs: Vital Signs Temperature 98.1 F 08/30/24 05:57 Pulse Rate 62 08/30/24 05:57 Respiratory Rate 16 08/30/24 05:57 Blood Pressure 140/89 08/30/24 05:57 Pulse Oximetry 98 08/30/24 05:57 Temperature 98.1 F 08/30/24 05:57 Pulse Rate 62 08/30/24 05:57 Respiratory Rate 16 08/30/24 05:57 Blood Pressure 140/89 08/30/24 05:57 Pulse Oximetry 98 08/30/24 05:57 Medical Decision Making MDM Narrative Medical decision making narrative: The patient was evaluated by myself in the emergency department. History is obtained from patient who is an independent historian and physical exam was performed. External medical records were reviewed at this time. IV was established and pertinent tests were ordered. Patient was administered 1 L IV fluid bolus with normal saline. Laboratory results obtained revealing a mild hypokalemia with potassium of 3.3 and mild hypomagnesemia with a magnesium of 1.5. Patient was administered 20 mEq of oral potassium and 1 g of IV magnesium at this time. Patient did have mild anion gap 16 likely secondary to dehydration at this time she was administered a 2nd IV fluid bolus with normal saline. Differential diagnosis considerations include acute viral illness, gastroenteritis, dehydration, electrolyte derangement. Comorbidities impacting this visit include none. I have evaluated and discussed social determinants of health with the patient that could potentially impact subsequent diagnosis and treatment plans. On repeat assessment of the patient, reevaluation revealed that the patient is doing well and is in no acute distress. Patient symptoms have improved since she arrived to our emergency department. Repeat vital signs were all reviewed and noted to be stable. Differential diagnosis and treatment plan were discussed with the patient at bedside. Patient agrees with discussion and after shared medical decision making agrees with discharge. All questions were answered to the patient's satisfaction. Patient will follow up with her PCP in 3-5 days. Script for [facility] to use as needed for nausea/vomiting. Patient was provided with strict return precautions and instructed to return to the emergency department if any new or worsening symptoms develop. The patient was discharged in stable condition. Vital Signs Vital Signs: Vital Signs Temperature 98.1 F 08/30/24 05:57 Pulse Rate 62 08/30/24 05:57 Respiratory Rate 16 08/30/24 05:57 Blood Pressure 140/89 08/30/24 05:57 Pulse Oximetry 98 08/30/24 05:57 Temperature 98.1 F 08/30/24 05:57 Pulse Rate 62 08/30/24 05:57 Respiratory Rate 16 08/30/24 05:57 Blood Pressure 140/89 08/30/24 05:57 Pulse Oximetry 98 08/30/24 05:57 Lab Data 08/30/24 06:12 08/30/24 06:12 Labs: Lab Results 08/30/24 08/30/24 Range/Units 06:12 06:12 WBC 9.0 (4.5-10.0) K/mm3 RBC 4.20 (4.2-5.4) M/mm3 Hgb 13.1 (12.0-15.0) g/dL Hct 38.4 (37.0-47.0) % MCV 91.4 (80-100) fl MCH 31.2 (26-34) pg MCHC 34.1 (32-36) g/dl RDW 12.8 (11.5-14.5) % Plt Count 330 (150-375) k/mm3 MPV 10.7 H (7.4-10.4) fl Immature Gran % (Auto) 0.2 (0-0.5) % Neut % (Auto) 77.3 H (45.5-73.1) % Lymph % (Auto) 16.4 L (18.3-44.2) % [place] % (Auto) 5.8 (2.6-8.5) % Eos % (Auto) 0.0 (0-4.4) % Baso % (Auto) 0.3 (0.2-1.2) % Lymph # (Auto) 1.47 (0.9-3.2) K/mm3 [place] # (Auto) 0.5 (0.1-0.6) K/mm3 Eos # (Auto) 0.0 (0-0.3) K/mm3 Baso # (Auto) 0.0 (0.0-0.1) K/mm3 Abs Immat Gran (auto) 0.02 (0.00-0.031) K/mm3 Absolute Neuts (auto) 6.9 H (1.3-6.7) K/mm3 Absolute Nucleated RBC 0.000 (0.0-0.012) K/mm3 Nucleated RBC % 0.0 (0.0-0.2) % Sodium 135 L (137-145) mmol/L Potassium 3.3 L (3.4-5.0) mmol/L Chloride 102 (98-107) mmol/L Carbon Dioxide 17 L (22-30) mmol/L Anion Gap 16 H (4-12) mmol/L BUN 14 (7-17) mg/dL Creatinine 0.70 (0.7-1.0) mg/dL Estim Creat Clear Calc 83 ml/min Estimated GFR > 60 (59 - ) Glucose 107 (65-110) mg/dL Calcium 10.0 (8.4-10.2) mg/dL Magnesium 1.5 L Cancelled (1.6-2.3) mg/dL Total Bilirubin 1.4 H (0.2-1.3) mg/dL AST 36 (14-36) U/L ALT 28 (6-35) U/L Alkaline Phosphatase 62 (38-126) U/L Total Protein 7.6 (6.3-8.2) g/dL Albumin 4.9 (3.5-5.1) g/dL Lipase 40 (23-300) U/L Serum HCG, Qual Negative Discharge Plan Discharge Clinical Impression: Gastroenteritis, Hypomagnesemia, Acute hypokalemia Patient Disposition: Home Condition: Improved Instructions: Antibiotic Form, Hypokalemia (ED), Gastroenteritis (ED), Hypomagnesemia (ED) Additional Instructions: Please follow-up with your family doctor within next 3-5 days. Return to the emergency department if any new or worsening symptoms develop. Use the prescribed Zofran as needed for nausea/vomiting. Patient Language: Cymraes Prescriptions: New ondansetron 4 mg tablet,disintegrating 4 mg PO Q8H PRN (Reason: nausea and vomiting) Qty: 12 0RF No Action sertraline [Zoloft] 50 mg Tablet 75 mg PO DAILY ondansetron 4 mg tablet,disintegrating 4 mg PO Q4H 0 Days Qty: 10 0RF Rx Instructions: 1st dose 1-2 hr before radiation ondansetron 4 mg tablet,disintegrating 4 mg PO Q8H PRN (Reason: nausea and vomiting) Qty: 15 0RF ondansetron 4 mg tablet,disintegrating 4 mg PO Q8H PRN (Reason: nausea and vomiting) Qty: 10 0RF promethazine 25 mg tablet 25 mg PO Q6H PRN (Reason: nausea and vomiting) Qty: 12 0RF cephalexin 500 mg capsule 500 mg PO Q8H 7 Days Qty: 21 0RF ondansetron 4 mg tablet,disintegrating 4 mg PO Q8H PRN (Reason: nausea and vomiting) Qty: 14 0RF Follow-up/Referrals: Mark Oliveros MD [Physician] - 3 Days PHYSICIAN,DISTRICT ADMINISTRATIVE ASSISTANT [Primary Care Provider] -
[2024-08-30 06:32] LABS: SPREG INTERNAL CONTROL Positive; Serum Qual hCG Negative
[2024-08-30 06:33] LABS: Alanine Aminotransferase 28 U/L (6-35); Albumin Level 4.9 g/dL (3.5-5.1); Alkaline Phosphatase 62 U/L (38-126); Anion Gap 16 mmol/L (4-12); Aspartate Amino Transferase 36 U/L (14-36); Bilirubin,Total 1.4 mg/dL (0.2-1.3); Blood Urea Nitrogen 14 mg/dL (7-17); Carbon Dioxide 17 mmol/L (22-30); Chloride 102 mmol/L (98-107); Estimated CRCL calculation 83 ml/min; Estimated Glomerular Filt Rate > 60; Glucose 107 mg/dL (65-110); Lipase 40 U/L (23-300); Magnesium 1.5 mg/dL (1.6-2.3); Potassium 3.3 mmol/L (3.4-5.0); Sodium 135 mmol/L (137-145); Total Protein 7.6 g/dL (6.3-8.2)
[2024-08-30] MEDS: ONDANSETRON INJ 4 MG/2 ML VIAL IV PUSH (06:34)
[2024-08-30] MEDS: MAGNESIUM SULF 1 GM/D5W 100 ML 1 GM/100 ML BAG IVPB (06:57)
[2024-08-30] MEDS: POTASSIUM CHLORIDE 20 MEQ ER TABLET PO (06:58)
[2024-08-30 07:19] VITALS: BP 147/74; PULSE 80; RESP 18; O2SAT 100
[2024-08-30 08:38] VITALS: BP 102/65; PULSE 78; RESP 16; O2SAT 98
== END 2024-08-30 08:40 | disposition home or self-care (01) ==
PROVIDERS: Emergency Provider Emergency Medicine
DX: K52.9 Noninfective gastroenteritis and colitis, unspecified (principal); E83.42 Hypomagnesemia; E87.6 Hypokalemia; F41.9 Anxiety disorder, unspecified
CPT/HCPCS: 36415; 80053; 83690; 83735; 84703; 85025; 96361; 96365; 96375; 99284; A9270; J2405; J3475; J7030